=== PATIENT | female | born 1955 | race Caucasian/White ===

== ENCOUNTER 2020-06-09 08:53 | Outpatient (CLI) | payer MEDICAID, SELFPAY ==
[2020-06-09] MEDS: IRON SUCROSE COMPLEX 300 MG in SODIUM CHLORIDE 0.9% IV 235 ML 125 MG IVPB (09:52)
== END 2020-06-09 08:54 | disposition home or self-care (01) ==
PROVIDERS: PCP Family Medicine; Visit Provider Internal Medicine Hematology & Oncology
DX: D50.9 Iron deficiency anemia, unspecified (principal)
CPT/HCPCS: 96365; 96366; J1756; J7050

== ENCOUNTER 2020-06-16 09:09 | Outpatient (CLI) | payer MEDICAID, SELFPAY ==
[2020-06-16 09:40] VITALS: BP 128/65; PULSE 67; RESP 16; TEMP 36.7; O2SAT 95
[2020-06-16] MEDS: IRON SUCROSE COMPLEX 300 MG in SODIUM CHLORIDE 0.9% IV 250 ML 125 MG IVPB (09:40)
--- NOTE | 2020-06-16 11:45 | PC.NURSE ---
Patient tolerated IV infusion well. IV site removed,tip intact. Dressing applied to site. Patient and discussed with Diamond Cutter and this RN that they did not feel the need for an administrative appeals tribunal member. Patient states they belive they can communicate well enough with white board, they dont want the administrative appeals tribunal member to have to sit in the hallway for 2hours. Nurse manager credit collections notified. Patient left ambulatory accompanied by . Denies any questions at discharge.
== END 2020-06-16 09:10 | disposition home or self-care (01) ==
LOC: CHSTREATRM 09:11
PROVIDERS: PCP Family Medicine; Visit Provider Internal Medicine Hematology & Oncology
DX: D50.9 Iron deficiency anemia, unspecified (principal)
CPT/HCPCS: 96365; 96366; J1756; J7050

== ENCOUNTER 2020-06-23 08:45 | Outpatient (CLI) | payer MEDICAID, SELFPAY ==
[2020-06-23] MEDS: IRON SUCROSE COMPLEX 300 MG in SODIUM CHLORIDE 0.9% IV 250 ML 125 MG IVPB (09:32)
== END 2020-06-23 08:46 | disposition home or self-care (01) ==
PROVIDERS: PCP Family Medicine; Visit Provider Internal Medicine Hematology & Oncology
DX: D50.9 Iron deficiency anemia, unspecified (principal)
CPT/HCPCS: 96365; 96366; J1756; J7050

== ENCOUNTER 2020-06-30 08:46 | Outpatient (CLI) | payer MEDICAID, SELFPAY ==
[2020-06-30] MEDS: IRON SUCROSE COMPLEX 300 MG in SODIUM CHLORIDE 0.9% IV 235 ML 125 MG IVPB (09:17)
--- NOTE | 2020-06-30 09:18 | PC.NURSE ---
Infusion started, given water to drink, denies needs
--- NOTE | 2020-06-30 10:16 | PC.NURSE ---
Tolerating infusion well, site clear
== END 2020-06-30 08:47 | disposition home or self-care (01) ==
PROVIDERS: PCP Family Medicine; Visit Provider Internal Medicine Hematology & Oncology
DX: D50.9 Iron deficiency anemia, unspecified (principal)
CPT/HCPCS: 96365; 96366; J1756; J7050

== ENCOUNTER 2020-07-07 08:44 | Outpatient (CLI) | payer MEDICAID, SELFPAY ==
[2020-07-07] MEDS: IRON SUCROSE COMPLEX 300 MG in SODIUM CHLORIDE 0.9% IV 235 ML 125 MG IVPB (09:27)
== END 2020-07-07 08:45 | disposition home or self-care (01) ==
LOC: CHSTREATRM 08:47
PROVIDERS: PCP Family Medicine; Visit Provider Internal Medicine Hematology & Oncology
DX: D50.9 Iron deficiency anemia, unspecified (principal)
CPT/HCPCS: 96365; 96366; J1756; J7050

== ENCOUNTER 2020-07-14 08:53 | Outpatient (CLI) | payer MEDICAID, SELFPAY ==
[2020-07-14 09:14] VITALS: BP 128/77; PULSE 64; RESP 12; TEMP 36.6; O2SAT 100
[2020-07-14] MEDS: IRON SUCROSE COMPLEX 300 MG in SODIUM CHLORIDE 0.9% IV 250 ML 125 MG IVPB (09:19)
--- NOTE | 2020-07-14 11:28 | PC.NURSE ---
Tolerated #6 of 6 Venofer infusions without difficulty. No concerns voiced. Safe exit of hospital.
== END 2020-07-14 08:54 | disposition home or self-care (01) ==
PROVIDERS: PCP Family Medicine; Visit Provider Internal Medicine Hematology & Oncology
DX: D50.9 Iron deficiency anemia, unspecified (principal)
CPT/HCPCS: 96365; 96366; J1756; J7050

== ENCOUNTER 2020-08-04 09:56 | Outpatient (CLI) | payer MEDICAID, SELFPAY ==
[2020-08-04 10:18] LABS: Basophils Absolute Auto 0.04 K/mm3 (0.00-0.10); Basophils Percent Auto 0.6 % (0.0-1.0); Eosinophils Absolute Auto 0.25 K/mm3 (0.02-0.50); Hematocrit 33.3 % (35.0-49.0); Hemoglobin 9.9 g/dL (12.0-15.0); Immature Granulocyte Absolute 0.02 K/mm3 (0.00-0.00); Immature Granulocyte Percent A 0.3 % (0.0-0.0); Lymphocytes Absolute Auto 0.96 K/mm3 (1.10-4.50); Lymphocytes Percent Auto 15.4 % (18.0-42.0); Mean Corpuscular HGB Conc 29.7 g/dL (32.0-36.0); Mean Corpuscular Hemoglobin 28.4 pg (27.0-31.0); Mean Corpuscular Volume 95.4 fL (78.0-102.0); Mean Platelet Volume 9.1 fl (9.2-11.8); Monocytes Absolute Auto 0.62 K/mm3 (0.10-0.90); Monocytes Percent Auto 9.9 % (2.0-11.0); Neutrophils Absolute Auto 4.4 K/mm3 (1.7-7.2); Neutrophils Percent Auto 69.8 % (50.0-70.0); Platelet Count Result 336 K/mm3 (150-420); Red Blood Count 3.49 M/mm3 (4.20-5.40); Red Cell Distribution Width 15.9 % (11.6-14.4); White Blood Count 6.3 K/mm3 (4.8-10.8)
[2020-08-04 10:50] LABS: Alanine Aminotransferase 18 U/L (14-59); Albumin Level 3.7 g/dL (3.4-5.0); Alkaline Phosphatase 86 U/L (46-116); Anion Gap 8 mmol/L (8-16); Aspartate Amino Transferase 13 U/L (15-37); Bilirubin,Total 0.7 mg/dL (0.00-1.00); Blood Urea Nitrogen 11 mg/dL (7-18); Calcium 8.6 mg/dL (8.5-10.1); Carbon Dioxide 31 mmol/L (21-32); Chloride 101 mmol/L (98-108); Estimated Glomerular Filt Rate > 60; Ferritin 79 ng/mL (8-252); Glucose 270 mg/dL (70-99); Iron 84 ug/dL (50-170); Osmolality Calculated 299 mOsm/kg (285-295); Percent Iron Saturation 23 % (12-57); Potassium 3.4 mmol/L (3.5-5.1); Sodium 140 mmol/L (136-145); Total Protein 7.1 g/dL (6.4-8.2)
[2020-08-10 21:21] LABS: Chromogranin A 130 ng/mL (25-140)
== END 2020-08-04 09:57 | disposition home or self-care (01) ==
LOC: CHSLAB 09:58
PROVIDERS: PCP Family Medicine; Visit Provider Internal Medicine Hematology & Oncology
DX: D3A.8 Other benign neuroendocrine tumors (principal); D50.9 Iron deficiency anemia, unspecified
CPT/HCPCS: 36415; 80053; 82728; 83540; 83550; 85025; 86316

== ENCOUNTER 2020-09-22 09:02 | Outpatient (CLI) | payer MEDICAID, SELFPAY ==
[2020-09-22 09:02] VITALS: BP 122/68; PULSE 68; RESP 16; TEMP 36.6; O2SAT 97
[2020-09-22] MEDS: IRON SUCROSE COMPLEX 300 MG in SODIUM CHLORIDE 0.9% IV 250 ML 125 MG IVPB (09:38)
--- NOTE | 2020-09-22 11:44 | PC.NURSE ---
Patient here for #1 of 5 Venofer IV infusion. Patient just had this in June. No new teaching needed per patient. Patient is deaf and communication done by dry erase board. IV Venofer administered. Patient tolerated well. Safe exit of hospital. Will return Sep 29, 2020 at 0900 for #2.
== END 2020-09-22 09:03 | disposition home or self-care (01) ==
LOC: CHSTREATRM 09:09
PROVIDERS: PCP Family Medicine; Visit Provider Internal Medicine Hematology & Oncology
DX: D50.9 Iron deficiency anemia, unspecified (principal)
CPT/HCPCS: 96365; 96366; J1756; J7050

== ENCOUNTER 2020-09-29 09:09 | Outpatient (CLI) | payer MEDICAID, SELFPAY ==
[2020-09-29] MEDS: IRON SUCROSE COMPLEX 300 MG in SODIUM CHLORIDE 0.9% IV 235 ML 125 MG IVPB (09:57)
--- NOTE | 2020-09-29 11:02 | PC.NURSE ---
tolerating infusion well, napping, at the bedside
--- NOTE | 2020-09-29 12:05 | PC.NURSE ---
discharged to home, saline lock removed with cathlon intact, aware of s/s of what to watch for infection with removal
== END 2020-09-29 09:10 | disposition home or self-care (01) ==
LOC: CHSTREATRM 09:10
PROVIDERS: PCP Family Medicine; Visit Provider Internal Medicine Hematology & Oncology
DX: D50.9 Iron deficiency anemia, unspecified (principal)
CPT/HCPCS: 96365; 96366; J1756; J7050

== ENCOUNTER 2020-10-06 08:52 | Outpatient (CLI) | payer MEDICAID, SELFPAY ==
[2020-10-06 09:07] VITALS: BP 121/70; PULSE 64; RESP 14; TEMP 36.6; O2SAT 98
[2020-10-06] MEDS: IRON SUCROSE COMPLEX 300 MG in SODIUM CHLORIDE 0.9% IV 250 ML 125 MG IV PUSH (09:11)
--- NOTE | 2020-10-06 11:17 | PC.NURSE ---
Patient here for #3 weekly of 5 Venofer infusions. No concerns from patient. Venofer infusion administered. Tolerated well. Will be back Friday @ 0900 for #4. Safe exit of hospital.
== END 2020-10-06 08:53 | disposition home or self-care (01) ==
PROVIDERS: PCP Family Medicine; Visit Provider Internal Medicine Hematology & Oncology
DX: D50.9 Iron deficiency anemia, unspecified (principal)
CPT/HCPCS: 96365; 96366; J1756; J7050

== ENCOUNTER 2020-10-13 09:00 | Outpatient (CLI) | payer MEDICAID, SELFPAY ==
--- NOTE | 2020-10-13 09:10 | PC.NURSE ---
Here for outpatient infusion
[2020-10-13] MEDS: IRON SUCROSE COMPLEX 300 MG in SODIUM CHLORIDE 0.9% IV 235 ML 125 MG IVPB (09:30)
== END 2020-10-13 09:01 | disposition home or self-care (01) ==
LOC: CHSTREATRM 09:03
PROVIDERS: PCP Family Medicine; Visit Provider Internal Medicine Hematology & Oncology
DX: D50.9 Iron deficiency anemia, unspecified (principal)
CPT/HCPCS: 96365; 96366; J1756; J7050

== ENCOUNTER 2020-10-20 08:44 | Outpatient (CLI) | payer MEDICAID, SELFPAY ==
[2020-10-20] MEDS: IRON SUCROSE COMPLEX 300 MG in SODIUM CHLORIDE 0.9% IV 250 ML 166.67 MG IVPB (09:19)
[2020-10-20 10:24] VITALS: BP 118/70; PULSE 80; RESP 14; TEMP 36.3; O2SAT 96
--- NOTE | 2020-10-20 11:31 | PC.NURSE ---
Patient tolerated #5 of 5 Venofer IV infusion well this a.m. No noted concerns. Safe exit of hospital.
== END 2020-10-20 08:45 | disposition home or self-care (01) ==
PROVIDERS: PCP Family Medicine; Visit Provider Internal Medicine Hematology & Oncology
DX: D50.9 Iron deficiency anemia, unspecified (principal)
CPT/HCPCS: 96365; 96366; J1756; J7050

== ENCOUNTER 2020-11-10 13:15 | Outpatient (CLI) | payer MEDICAID, SELFPAY ==
[2020-11-10 13:26] LABS: Basophils Absolute Auto 0.04 K/mm3 (0.00-0.10); Basophils Percent Auto 0.5 % (0.0-1.0); Eosinophils Absolute Auto 0.17 K/mm3 (0.02-0.50); Eosinophils Percent Auto 2.2 % (1.0-6.0); Hematocrit 37.2 % (35.0-49.0); Hemoglobin 11.5 g/dL (12.0-15.0); Immature Granulocyte Absolute 0.02 K/mm3 (0.00-0.00); Immature Granulocyte Percent A 0.3 % (0.0-0.0); Lymphocytes Absolute Auto 1.31 K/mm3 (1.10-4.50); Lymphocytes Percent Auto 17.2 % (18.0-42.0); Mean Corpuscular HGB Conc 30.9 g/dL (32.0-36.0); Mean Corpuscular Hemoglobin 29.3 pg (27.0-31.0); Mean Corpuscular Volume 94.9 fL (78.0-102.0); Mean Platelet Volume 9.3 fl (9.2-11.8); Monocytes Absolute Auto 0.56 K/mm3 (0.10-0.90); Monocytes Percent Auto 7.3 % (2.0-11.0); Neutrophils Absolute Auto 5.5 K/mm3 (1.7-7.2); Neutrophils Percent Auto 72.5 % (50.0-70.0); Platelet Count Result 329 K/mm3 (150-420); Red Blood Count 3.92 M/mm3 (4.20-5.40); Red Cell Distribution Width 15.5 % (11.6-14.4); White Blood Count 7.6 K/mm3 (4.8-10.8)
[2020-11-10 14:30] LABS: Ferritin 120 ng/mL (8-252); Iron 40 ug/dL (50-170); Percent Iron Saturation 11 % (12-57)
== END 2020-11-10 13:16 | disposition home or self-care (01) ==
LOC: CHSLAB 13:18
PROVIDERS: PCP Family Medicine; Visit Provider Internal Medicine Hematology & Oncology
DX: D50.9 Iron deficiency anemia, unspecified (principal)
CPT/HCPCS: 36415; 82728; 83540; 83550; 85025

== ENCOUNTER 2020-12-26 14:27 | Outpatient (CLI) | payer MEDICAID, SELFPAY ==
[2020-12-26 14:39] LABS: Basophils Absolute Auto 0.05 K/mm3 (0.00-0.10); Basophils Percent Auto 0.8 % (0.0-1.0); Eosinophils Percent Auto 3.2 % (1.0-6.0); Hematocrit 40.4 % (35.0-49.0); Hemoglobin 12.4 g/dL (12.0-15.0); Immature Granulocyte Absolute 0.02 K/mm3 (0.00-0.00); Immature Granulocyte Percent A 0.3 % (0.0-0.0); Lymphocytes Absolute Auto 1.28 K/mm3 (1.10-4.50); Lymphocytes Percent Auto 20.3 % (18.0-42.0); Mean Corpuscular HGB Conc 30.7 g/dL (32.0-36.0); Mean Corpuscular Hemoglobin 28.8 pg (27.0-31.0); Mean Platelet Volume 9.5 fl (9.2-11.8); Monocytes Absolute Auto 0.68 K/mm3 (0.10-0.90); Monocytes Percent Auto 10.8 % (2.0-11.0); Neutrophils Absolute Auto 4.1 K/mm3 (1.7-7.2); Neutrophils Percent Auto 64.6 % (50.0-70.0); Platelet Count Result 321 K/mm3 (150-420); Red Cell Distribution Width 14.6 % (11.6-14.4); White Blood Count 6.3 K/mm3 (4.8-10.8)
[2020-12-26 15:49] LABS: Alanine Aminotransferase 14 U/L (14-59); Albumin Level 3.7 g/dL (3.4-5.0); Alkaline Phosphatase 74 U/L (46-116); Anion Gap 6 mmol/L (8-16); Aspartate Amino Transferase 13 U/L (15-37); Bilirubin,Total 0.8 mg/dL (0.00-1.00); Blood Urea Nitrogen 8 mg/dL (7-18); Calcium 8.8 mg/dL (8.5-10.1); Carbon Dioxide 36 mmol/L (21-32); Chloride 100 mmol/L (98-108); Estimated Glomerular Filt Rate > 60; Ferritin 47 ng/mL (8-252); Glucose 214 mg/dL (70-99); Iron 39 ug/dL (50-170); Osmolality Calculated 298 mOsm/kg (285-295); Percent Iron Saturation 10 % (12-57); Potassium 4.2 mmol/L (3.5-5.1); Sodium 142 mmol/L (136-145)
[2020-12-30 16:42] LABS: Chromogranin A 127 ng/mL (25-140)
== END 2020-12-26 14:28 | disposition home or self-care (01) ==
LOC: CHSLAB 14:29
PROVIDERS: PCP Family Medicine; Visit Provider Internal Medicine Hematology & Oncology
DX: D3A.8 Other benign neuroendocrine tumors (principal); D50.9 Iron deficiency anemia, unspecified
CPT/HCPCS: 36415; 80053; 82728; 83540; 83550; 85025; 86316

== ENCOUNTER 2021-01-05 09:03 | Outpatient (CLI) | payer MEDICAID, SELFPAY ==
[2021-01-05] MEDS: IRON SUCROSE COMPLEX 300 MG in SODIUM CHLORIDE 0.9% IV 235 ML 125 MG IVPB (09:38)
--- NOTE | 2021-01-05 11:40 | PC.NURSE ---
saline access dc'd, tolerated infusion well, discharged to home ambulatory
== END 2021-01-05 09:04 | disposition home or self-care (01) ==
PROVIDERS: PCP Family Medicine; Visit Provider Internal Medicine Hematology & Oncology
DX: E61.1 Iron deficiency (principal)
CPT/HCPCS: 96365; 96366; J1756; J7050

== ENCOUNTER 2021-01-12 08:49 | Outpatient (CLI) | payer MEDICAID, SELFPAY ==
--- NOTE | 2021-01-12 09:07 | PC.NURSE ---
Pt to room 229 amb per self. Up in chair. Communication between nurse and patient is written due to patient being deaf. Pt has no questions or concerns. Oriented to room. Call baez in reach. Reminded to call with needs.
[2021-01-12] MEDS: IRON SUCROSE COMPLEX 300 MG in SODIUM CHLORIDE 0.9% IV 250 ML 125 MG IVPB (09:18)
--- NOTE | 2021-01-12 11:25 | PC.NURSE ---
Venofer infused as ordered. Pt tolerated well. Discharged to home per self without complaints.
== END 2021-01-12 08:50 | disposition home or self-care (01) ==
LOC: CHSTREATRM 08:51
PROVIDERS: PCP Family Medicine; Visit Provider Internal Medicine Hematology & Oncology
DX: E61.1 Iron deficiency (principal)
CPT/HCPCS: 96365; 96366; J1756; J7050

== ENCOUNTER 2021-01-19 08:26 | Outpatient (CLI) | payer MEDICAID, SELFPAY ==
--- NOTE | 2021-01-19 08:40 | PC.NURSE ---
Here for outpatient infusion
[2021-01-19] MEDS: IRON SUCROSE COMPLEX 300 MG in SODIUM CHLORIDE 0.9% IV 235 ML 125 MG IVPB (09:01)
--- NOTE | 2021-01-19 11:05 | PC.NURSE ---
infusion complete, iv discontinued, site clear, ambulatory to home
== END 2021-01-19 08:27 | disposition home or self-care (01) ==
LOC: CHSTREATRM 08:30
PROVIDERS: PCP Family Medicine; Visit Provider Internal Medicine Hematology & Oncology
DX: D50.9 Iron deficiency anemia, unspecified (principal)
CPT/HCPCS: 96365; 96366; J1756; J7050

== ENCOUNTER 2021-01-23 14:36 | Outpatient (CLI) | payer MEDICAID, SELFPAY ==
[2021-01-23 14:51] LABS: Basophils Absolute Auto 0.04 K/mm3 (0.00-0.10); Basophils Percent Auto 0.7 % (0.0-1.0); Eosinophils Absolute Auto 0.18 K/mm3 (0.02-0.50); Eosinophils Percent Auto 3.1 % (1.0-6.0); Hemoglobin 12.1 g/dL (12.0-15.0); Immature Granulocyte Absolute 0.02 K/mm3 (0.00-0.00); Immature Granulocyte Percent A 0.3 % (0.0-0.0); Lymphocytes Absolute Auto 0.98 K/mm3 (1.10-4.50); Lymphocytes Percent Auto 16.8 % (18.0-42.0); Mean Corpuscular Hemoglobin 28.3 pg (27.0-31.0); Mean Corpuscular Volume 91.3 fL (78.0-102.0); Mean Platelet Volume 9.1 fl (9.2-11.8); Monocytes Absolute Auto 0.61 K/mm3 (0.10-0.90); Monocytes Percent Auto 10.5 % (2.0-11.0); Neutrophils Percent Auto 68.6 % (50.0-70.0); Platelet Count Result 255 K/mm3 (150-420); Red Blood Count 4.27 M/mm3 (4.20-5.40); Red Cell Distribution Width 15.3 % (11.6-14.4); White Blood Count 5.8 K/mm3 (4.8-10.8)
[2021-01-23 15:30] LABS: Alanine Aminotransferase 21 U/L (14-59); Albumin Level 3.7 g/dL (3.4-5.0); Alkaline Phosphatase 77 U/L (46-116); Anion Gap 7 mmol/L (8-16); Aspartate Amino Transferase 16 U/L (15-37); Bilirubin,Total 0.9 mg/dL (0.00-1.00); Blood Urea Nitrogen 8 mg/dL (7-18); Calcium 8.8 mg/dL (8.5-10.1); Carbon Dioxide 31 mmol/L (21-32); Chloride 101 mmol/L (98-108); Estimated Glomerular Filt Rate > 60; Glucose 245 mg/dL (70-99); Iron 63 ug/dL (50-170); Osmolality Calculated 294 mOsm/kg (285-295); Potassium 3.7 mmol/L (3.5-5.1); Sodium 139 mmol/L (136-145); Total Protein 6.7 g/dL (6.4-8.2)
[2021-01-23 17:15] LABS: Ferritin 198 ng/mL (8-252); Percent Iron Saturation 19 % (12-57)
[2021-01-27 17:27] LABS: Chromogranin A 95 ng/mL (25-140)
== END 2021-01-23 14:37 | disposition home or self-care (01) ==
LOC: CHSLAB 14:38
PROVIDERS: PCP Family Medicine; Visit Provider Internal Medicine Hematology & Oncology
DX: D12.6 Benign neoplasm of colon, unspecified (principal); D50.9 Iron deficiency anemia, unspecified
CPT/HCPCS: 36415; 80053; 82728; 83540; 83550; 85025; 86316

== ENCOUNTER 2021-03-28 12:20 | Outpatient (CLI) | payer MEDICAID, SELFPAY ==
[2021-03-28 12:34] LABS: Basophils Absolute Auto 0.04 K/mm3 (0.00-0.10); Basophils Percent Auto 0.7 % (0.0-1.0); Hematocrit 39.5 % (35.0-49.0); Hemoglobin 12.1 g/dL (12.0-15.0); Immature Granulocyte Absolute 0.02 K/mm3 (0.00-0.00); Immature Granulocyte Percent A 0.3 % (0.0-0.0); Lymphocytes Absolute Auto 1.66 K/mm3 (1.10-4.50); Lymphocytes Percent Auto 27.7 % (18.0-42.0); Mean Corpuscular HGB Conc 30.6 g/dL (32.0-36.0); Mean Corpuscular Hemoglobin 28.6 pg (27.0-31.0); Mean Corpuscular Volume 93.4 fL (78.0-102.0); Mean Platelet Volume 9.3 fl (9.2-11.8); Monocytes Absolute Auto 0.66 K/mm3 (0.10-0.90); Neutrophils Absolute Auto 3.3 K/mm3 (1.7-7.2); Neutrophils Percent Auto 55.3 % (50.0-70.0); Platelet Count Result 285 K/mm3 (150-420); Red Blood Count 4.23 M/mm3 (4.20-5.40); Red Cell Distribution Width 14.7 % (11.6-14.4)
[2021-03-28 13:42] LABS: Alanine Aminotransferase 18 U/L (14-59); Albumin Level 3.4 g/dL (3.4-5.0); Alkaline Phosphatase 75 U/L (46-116); Anion Gap 6 mmol/L (8-16); Aspartate Amino Transferase 14 U/L (15-37); Bilirubin,Total 1.2 mg/dL (0.00-1.00); Blood Urea Nitrogen 9 mg/dL (7-18); Calcium 8.7 mg/dL (8.5-10.1); Carbon Dioxide 38 mmol/L (21-32); Chloride 100 mmol/L (98-108); Estimated Glomerular Filt Rate > 60; Ferritin 80 ng/mL (8-252); Glucose 148 mg/dL (70-99); Iron 43 ug/dL (50-170); Osmolality Calculated 299 mOsm/kg (285-295); Percent Iron Saturation 14 % (12-57); Potassium 3.2 mmol/L (3.5-5.1); Sodium 144 mmol/L (136-145); Total Protein 6.3 g/dL (6.4-8.2)
== END 2021-03-28 12:21 | disposition home or self-care (01) ==
LOC: CHSLAB 12:25
PROVIDERS: PCP Family Medicine; Visit Provider Internal Medicine Hematology & Oncology
DX: D3A.8 Other benign neuroendocrine tumors (principal)
CPT/HCPCS: 36415; 80053; 82728; 83540; 83550; 85025; 86316

== ENCOUNTER 2021-04-20 09:04 | Outpatient (CLI) | payer MEDICAID, SELFPAY ==
[2021-04-20] MEDS: IRON SUCROSE COMPLEX 300 MG in SODIUM CHLORIDE 0.9% IV 250 ML 125 MG IVPB (09:40)
[2021-04-20 09:59] VITALS: BP 120/68; PULSE 80; RESP 14; O2SAT 97
--- NOTE | 2021-04-20 11:39 | PC.NURSE ---
Patient tolerated #1 of 3 IV Venofer Infusion well. No concerns voiced. Safe exit of hospital. Will return Next Fri. April.
== END 2021-04-20 09:05 | disposition home or self-care (01) ==
PROVIDERS: PCP Family Medicine; Visit Provider Internal Medicine Hematology & Oncology
DX: D50.9 Iron deficiency anemia, unspecified (principal)
CPT/HCPCS: 96365; 96366; J1756; J7050

== ENCOUNTER 2021-04-27 08:50 | Outpatient (CLI) | payer MEDICAID, SELFPAY ==
[2021-04-27 09:13] VITALS: BP 99/49; PULSE 65; RESP 14; TEMP 36.6; O2SAT 90
[2021-04-27] MEDS: IRON SUCROSE COMPLEX 300 MG in SODIUM CHLORIDE 0.9% IV 235 ML 125 MG IVPB (09:13)
--- NOTE | 2021-04-27 11:19 | PC.NURSE ---
Patient here for #2 of 3 Venofer infusion. Patient tolerated infusion well. Safely ambulated out of the building. Will return on 05/04/2021 at 0900.
== END 2021-04-27 08:51 | disposition home or self-care (01) ==
PROVIDERS: PCP Family Medicine; Visit Provider Internal Medicine Hematology & Oncology
DX: D50.9 Iron deficiency anemia, unspecified (principal)
CPT/HCPCS: 96365; 96366; J1756; J7050

== ENCOUNTER 2021-05-04 09:04 | Outpatient (CLI) | payer MEDICAID, SELFPAY ==
[2021-05-04 09:16] VITALS: BP 100/58; PULSE 60; RESP 14; TEMP 36.5; O2SAT 99
[2021-05-04] MEDS: IRON SUCROSE COMPLEX 300 MG in SODIUM CHLORIDE 0.9% IV 250 ML 125 MG IVPB (09:40)
--- NOTE | 2021-05-04 12:48 | PC.NURSE ---
Tolerated # 3 of 3 IV Venofer infusions well. NO concerns voiced. Patient glad this is the last one. Safe exit of hospital.
== END 2021-05-04 09:05 | disposition home or self-care (01) ==
LOC: CHSTREATRM 09:07
PROVIDERS: PCP Family Medicine; Visit Provider Internal Medicine Hematology & Oncology
DX: D50.9 Iron deficiency anemia, unspecified (principal)
CPT/HCPCS: 96365; 96366; J1756; J7050

== ENCOUNTER 2021-07-10 13:29 | Outpatient (CLI) | payer MEDICAID, SELFPAY ==
[2021-07-10 14:56] LABS: Ferritin 31 ng/mL (8-252); Iron 95 ug/dL (50-170); Percent Iron Saturation 25 % (12-57)
== END 2021-07-10 13:30 | disposition home or self-care (01) ==
LOC: CHSLAB 13:33
PROVIDERS: PCP Family Medicine; Visit Provider Internal Medicine Hematology & Oncology
DX: D50.9 Iron deficiency anemia, unspecified (principal)
CPT/HCPCS: 36415; 82728; 83540; 83550

== ENCOUNTER 2021-07-12 13:14 | Outpatient (CLI) | payer MEDICAID, SELFPAY ==
[2021-07-12 13:28] LABS: Basophils Absolute Auto 0.05 K/mm3 (0.00-0.10); Basophils Percent Auto 0.7 % (0.0-1.0); Eosinophils Absolute Auto 0.19 K/mm3 (0.02-0.50); Eosinophils Percent Auto 2.6 % (1.0-6.0); Hematocrit 34.6 % (35.0-49.0); Hemoglobin 10.4 g/dL (12.0-15.0); Immature Granulocyte Absolute 0.03 K/mm3 (0.00-0.00); Immature Granulocyte Percent A 0.4 % (0.0-0.0); Lymphocytes Absolute Auto 1.49 K/mm3 (1.10-4.50); Lymphocytes Percent Auto 20.3 % (18.0-42.0); Mean Corpuscular HGB Conc 30.1 g/dL (32.0-36.0); Mean Corpuscular Hemoglobin 29.1 pg (27.0-31.0); Mean Corpuscular Volume 96.9 fL (78.0-102.0); Mean Platelet Volume 9.2 fl (9.2-11.8); Monocytes Absolute Auto 0.71 K/mm3 (0.10-0.90); Monocytes Percent Auto 9.7 % (2.0-11.0); Neutrophils Absolute Auto 4.9 K/mm3 (1.7-7.2); Neutrophils Percent Auto 66.3 % (50.0-70.0); Platelet Count Result 323 K/mm3 (150-420); Red Blood Count 3.57 M/mm3 (4.20-5.40); Red Cell Distribution Width 15.7 % (11.6-14.4); White Blood Count 7.3 K/mm3 (4.8-10.8)
[2021-07-12 14:16] LABS: Alanine Aminotransferase 16 U/L (14-59); Albumin Level 3.7 g/dL (3.4-5.0); Alkaline Phosphatase 63 U/L (46-116); Anion Gap 13 mmol/L (8-16); Aspartate Amino Transferase 12 U/L (15-37); Bilirubin,Total 0.7 mg/dL (0.00-1.00); Blood Urea Nitrogen 11 mg/dL (7-18); Calcium 8.5 mg/dL (8.5-10.1); Carbon Dioxide 30 mmol/L (21-32); Chloride 103 mmol/L (98-108); Estimated Glomerular Filt Rate > 60; Glucose 153 mg/dL (70-99); Osmolality Calculated 304 mOsm/kg (285-295); Potassium 4.1 mmol/L (3.5-5.1); Sodium 146 mmol/L (136-145); Total Protein 6.7 g/dL (6.4-8.2)
== END 2021-07-12 13:15 | disposition home or self-care (01) ==
LOC: CHSLAB 13:18
PROVIDERS: PCP Family Medicine; Visit Provider Internal Medicine Hematology & Oncology
DX: D3A.8 Other benign neuroendocrine tumors (principal)
CPT/HCPCS: 36415; 80053; 85025; 86316

== ENCOUNTER 2021-10-11 11:30 | Outpatient (CLI) | payer MEDICAID, SELFPAY ==
[2021-10-11 11:47] LABS: Basophils Absolute Auto 0.04 K/mm3 (0.00-0.10); Basophils Percent Auto 0.8 % (0.0-1.0); Eosinophils Absolute Auto 0.21 K/mm3 (0.02-0.50); Eosinophils Percent Auto 4.3 % (1.0-6.0); Hematocrit 29.3 % (35.0-42.0); Hemoglobin 8.4 g/dL (11.7-13.8); Immature Granulocyte Absolute 0.02 K/mm3 (0.00-0.00); Immature Granulocyte Percent A 0.4 % (0.0-0.0); Lymphocytes Absolute Auto 0.79 K/mm3 (1.10-4.50); Lymphocytes Percent Auto 16.3 % (18.0-42.0); Mean Corpuscular HGB Conc 28.7 g/dL (32.0-36.0); Mean Corpuscular Hemoglobin 27.9 pg (27.0-31.0); Mean Corpuscular Volume 97.3 fL (78.0-102.0); Mean Platelet Volume 9.7 fl (9.2-11.8); Monocytes Absolute Auto 0.48 K/mm3 (0.10-0.90); Monocytes Percent Auto 9.9 % (2.0-11.0); Neutrophils Absolute Auto 3.3 K/mm3 (1.7-7.2); Neutrophils Percent Auto 68.3 % (50.0-70.0); Platelet Count Result 330 K/mm3 (150-420); Red Blood Count 3.01 M/mm3 (4.20-5.40); Red Cell Distribution Width 15.2 % (11.6-14.4); White Blood Count 4.9 K/mm3 (4.8-10.8)
[2021-10-11 12:16] LABS: Alanine Aminotransferase 11 U/L (14-59); Albumin Level 3.2 g/dL (3.4-5.0); Alkaline Phosphatase 66 U/L (46-116); Anion Gap 7 mmol/L (8-16); Aspartate Amino Transferase 12 U/L (15-37); Bilirubin,Total 0.7 mg/dL (0.00-1.00); Blood Urea Nitrogen 9 mg/dL (7-18); Calcium 8.2 mg/dL (8.5-10.1); Carbon Dioxide 32 mmol/L (21-32); Chloride 104 mmol/L (98-108); Estimated Glomerular Filt Rate > 60; Glucose 179 mg/dL (70-99); Osmolality Calculated 298 mOsm/kg (285-295); Potassium 3.6 mmol/L (3.5-5.1); Sodium 143 mmol/L (136-145); Total Protein 5.9 g/dL (6.4-8.2)
== END 2021-10-11 11:31 | disposition home or self-care (01) ==
LOC: CHSLAB 11:32
PROVIDERS: PCP Family Medicine; Visit Provider Internal Medicine Hematology & Oncology
DX: D3A.8 Other benign neuroendocrine tumors (principal)
CPT/HCPCS: 36415; 80053; 85025; 86316

== ENCOUNTER 2022-01-02 10:46 | Outpatient (CLI) | payer MEDICARE, SELFPAY ==
[2022-01-02 11:09] LABS: Basophils Absolute Auto 0.06 K/mm3 (0.00-0.10); Eosinophils Absolute Auto 0.18 K/mm3 (0.02-0.50); Eosinophils Percent Auto 2.9 % (1.0-6.0); Hemoglobin 9.2 g/dL (11.7-13.8); Immature Granulocyte Absolute 0.03 K/mm3 (0.00-0.00); Immature Granulocyte Percent A 0.5 % (0.0-0.0); Lymphocytes Absolute Auto 0.82 K/mm3 (1.10-4.50); Lymphocytes Percent Auto 13.2 % (18.0-42.0); Mean Corpuscular HGB Conc 28.8 g/dL (32.0-36.0); Mean Corpuscular Hemoglobin 26.3 pg (27.0-31.0); Mean Corpuscular Volume 91.4 fL (78.0-102.0); Mean Platelet Volume 9.4 fl (9.2-11.8); Monocytes Absolute Auto 0.59 K/mm3 (0.10-0.90); Monocytes Percent Auto 9.5 % (2.0-11.0); Neutrophils Absolute Auto 4.5 K/mm3 (1.7-7.2); Neutrophils Percent Auto 72.9 % (50.0-70.0); Platelet Count Result 320 K/mm3 (150-420); Red Cell Distribution Width 14.4 % (11.6-14.4); White Blood Count 6.2 K/mm3 (4.8-10.8)
[2022-01-02 11:43] LABS: Alanine Aminotransferase 13 U/L (14-59); Albumin Level 3.3 g/dL (3.4-5.0); Alkaline Phosphatase 55 U/L (46-116); Anion Gap 10 mmol/L (8-16); Aspartate Amino Transferase 11 U/L (15-37); Bilirubin,Total 0.6 mg/dL (0.00-1.00); Blood Urea Nitrogen 11 mg/dL (7-18); Calcium 8.5 mg/dL (8.5-10.1); Carbon Dioxide 30 mmol/L (21-32); Chloride 100 mmol/L (98-108); Estimated Glomerular Filt Rate > 60; Ferritin 8 ng/mL (8-252); Glucose 215 mg/dL (70-99); Iron 395 ug/dL (50-170); Osmolality Calculated 295 mOsm/kg (285-295); Percent Iron Saturation 91 % (12-57); Potassium 4.1 mmol/L (3.5-5.1); Sodium 140 mmol/L (136-145); Total Protein 6.2 g/dL (6.4-8.2)
== END 2022-01-02 10:47 | disposition home or self-care (01) ==
LOC: CHSLAB 10:54
PROVIDERS: PCP Family Medicine; Visit Provider Internal Medicine Hematology & Oncology
DX: D12.6 Benign neoplasm of colon, unspecified (principal); D50.9 Iron deficiency anemia, unspecified
CPT/HCPCS: 36415; 80053; 82728; 83540; 83550; 85025; 86316

== ENCOUNTER 2022-01-25 08:34 | Outpatient (CLI) | payer MEDICARE, MEDICAID, SELFPAY ==
[2022-01-25 08:50] VITALS: BP 121/63; PULSE 78; RESP 16; TEMP 36.6; O2SAT 97
[2022-01-25] MEDS: IRON SUCROSE COMPLEX 300 MG in SODIUM CHLORIDE 0.9% IV 250 ML 125 MG IVPB (09:00)
--- NOTE | 2022-01-25 10:55 | PC.NURSE ---
Patient here for IV Venofer infusion #1 of 4. Education on med given. No concerns voiced. Has had many times in past. IV Venofer administered see JAN. Tolerated well. Safe exit of hospital. Will return February 01, 2022 at 0900 for #2 of 4.
== END 2022-01-25 08:35 | disposition home or self-care (01) ==
LOC: CHSTREATRM 08:38
PROVIDERS: PCP Family Medicine; Visit Provider Internal Medicine Hematology & Oncology
DX: D50.9 Iron deficiency anemia, unspecified (principal)
CPT/HCPCS: 96365; 96366; J1756; J7050

== ENCOUNTER 2022-02-01 10:28 | Outpatient (CLI) | payer MEDICARE, MEDICAID, SELFPAY ==
[2022-02-01] MEDS: IRON SUCROSE COMPLEX 300 MG in SODIUM CHLORIDE 0.9% IV 235 ML 125 MG IVPB (11:00)
[2022-02-01 11:14] VITALS: BP 129/66; PULSE 72; RESP 14; TEMP 36.3; O2SAT 97
--- NOTE | 2022-02-01 12:56 | PC.NURSE ---
Patient here for IV Venofer #2 of 4. NO concerns voiced. IV Venofer administered. SEE MAR. Tolerated well. Will return next Friday02/08/22 for #3 of 4. Safe exit of hospital.
== END 2022-02-01 10:29 | disposition home or self-care (01) ==
LOC: CHSTREATRM 10:30
PROVIDERS: PCP Family Medicine; Visit Provider Internal Medicine Hematology & Oncology
DX: D50.9 Iron deficiency anemia, unspecified (principal)
CPT/HCPCS: 96365; 96366; J1756; J7050

== ENCOUNTER 2022-02-08 08:56 | Outpatient (CLI) | payer MEDICARE, MEDICAID, SELFPAY ==
[2022-02-08 09:11] VITALS: BP 132/74; PULSE 68; RESP 14; TEMP 36.1; O2SAT 97
[2022-02-08] MEDS: IRON SUCROSE COMPLEX 300 MG in SODIUM CHLORIDE 0.9% IV 250 ML 125 MG IVPB (09:26)
--- NOTE | 2022-02-08 11:31 | PC.NURSE ---
Patient here for #3 of 4 IV Venofer infusions. No concerns voiced. IV Venofer administered. See MAR. Tolerated well. Safe exit of hospital. Will return 02/15/22 for #4 at 0900
== END 2022-02-08 08:57 | disposition home or self-care (01) ==
PROVIDERS: PCP Family Medicine; Visit Provider Internal Medicine Hematology & Oncology
DX: D50.9 Iron deficiency anemia, unspecified (principal)
CPT/HCPCS: 96365; 96366; J1756; J7050

== ENCOUNTER 2022-02-15 08:41 | Outpatient (CLI) | payer MEDICARE, MEDICAID, SELFPAY ==
[2022-02-15 08:55] VITALS: BP 134/87; PULSE 72; RESP 14; TEMP 36.7; O2SAT 97
[2022-02-15] MEDS: IRON SUCROSE COMPLEX 300 MG in SODIUM CHLORIDE 0.9% IV 235 ML 125 MG IVPB (09:00)
--- NOTE | 2022-02-15 10:56 | PC.NURSE ---
Patient here for #4 of 4 IV Venofer infusions. No concerns voiced. IV Venofer administered. See MAR. Tolerated well. Safe exit of hospital. Will follow up with Dr. Sawant for more iron infusions in the future.
== END 2022-02-15 08:42 | disposition home or self-care (01) ==
LOC: CHSTREATRM 08:43
PROVIDERS: PCP Family Medicine; Visit Provider Internal Medicine Hematology & Oncology
DX: D50.9 Iron deficiency anemia, unspecified (principal)
CPT/HCPCS: 96365; 96366; J1756; J7050

== ENCOUNTER 2022-03-14 10:22 | Outpatient (CLI) | payer MEDICARE, SELFPAY ==
[2022-03-14 10:37] LABS: Basophils Absolute Auto 0.04 K/mm3 (0.00-0.10); Basophils Percent Auto 0.8 % (0.0-1.0); Eosinophils Absolute Auto 0.21 K/mm3 (0.02-0.50); Eosinophils Percent Auto 4.5 % (1.0-6.0); Hemoglobin 8.1 g/dL (11.7-13.8); Immature Granulocyte Absolute 0.02 K/mm3 (0.00-0.00); Immature Granulocyte Percent A 0.4 % (0.0-0.0); Lymphocytes Absolute Auto 0.95 K/mm3 (1.10-4.50); Lymphocytes Percent Auto 20.2 % (18.0-42.0); Mean Corpuscular HGB Conc 28.9 g/dL (32.0-36.0); Mean Corpuscular Hemoglobin 28.9 pg (27.0-31.0); Mean Platelet Volume 9.4 fl (9.2-11.8); Monocytes Absolute Auto 0.57 K/mm3 (0.10-0.90); Monocytes Percent Auto 12.1 % (2.0-11.0); Neutrophils Absolute Auto 2.9 K/mm3 (1.7-7.2); Platelet Count Result 331 K/mm3 (150-420); Red Cell Distribution Width 16.5 % (11.6-14.4); White Blood Count 4.7 K/mm3 (4.8-10.8)
[2022-03-14 11:45] LABS: Alanine Aminotransferase 17 U/L (14-59); Albumin Level 3.1 g/dL (3.4-5.0); Alkaline Phosphatase 61 U/L (46-116); Anion Gap 6 mmol/L (8-16); Aspartate Amino Transferase 13 U/L (15-37); Bilirubin,Total 0.5 mg/dL (0.00-1.00); Blood Urea Nitrogen 8 mg/dL (7-18); Calcium 8.2 mg/dL (8.5-10.1); Carbon Dioxide 32 mmol/L (21-32); Chloride 104 mmol/L (98-108); Estimated Glomerular Filt Rate > 60; Ferritin 38 ng/mL (8-252); Glucose 169 mg/dL (70-99); Iron 122 ug/dL (50-170); Osmolality Calculated 296 mOsm/kg (285-295); Percent Iron Saturation 36 % (12-57); Potassium 3.9 mmol/L (3.5-5.1); Sodium 142 mmol/L (136-145); Total Protein 5.8 g/dL (6.4-8.2)
== END 2022-03-14 10:23 | disposition home or self-care (01) ==
LOC: CHSLAB 10:24
PROVIDERS: PCP Family Medicine; Visit Provider Internal Medicine Hematology & Oncology
DX: D3A.8 Other benign neuroendocrine tumors (principal); D50.9 Iron deficiency anemia, unspecified
CPT/HCPCS: 36415; 80053; 82728; 83540; 83550; 85025; 86316

== ENCOUNTER 2022-05-04 08:51 | Outpatient (RCR) | payer MEDICARE, MEDICAID, SELFPAY ==
[2022-05-03 09:11] LABS: Basophils Absolute Auto 0.04 K/mm3 (0.00-0.10); Basophils Percent Auto 0.7 % (0.0-1.0); Eosinophils Absolute Auto 0.22 K/mm3 (0.02-0.50); Eosinophils Percent Auto 3.8 % (1.0-6.0); Hematocrit 25.4 % (35.0-42.0); Immature Granulocyte Absolute 0.02 K/mm3 (0.00-0.00); Immature Granulocyte Percent A 0.3 % (0.0-0.0); Lymphocytes Absolute Auto 1.35 K/mm3 (1.10-4.50); Lymphocytes Percent Auto 23.1 % (18.0-42.0); Mean Corpuscular HGB Conc 27.6 g/dL (32.0-36.0); Mean Corpuscular Volume 94.4 fL (78.0-102.0); Mean Platelet Volume 10.3 fl (9.2-11.8); Monocytes Absolute Auto 0.79 K/mm3 (0.10-0.90); Monocytes Percent Auto 13.5 % (2.0-11.0); Neutrophils Absolute Auto 3.4 K/mm3 (1.7-7.2); Neutrophils Percent Auto 58.6 % (50.0-70.0); Platelet Count Result 377 K/mm3 (150-420); Red Blood Count 2.69 M/mm3 (4.20-5.40); White Blood Count 5.8 K/mm3 (4.8-10.8)
[2022-05-04] MEDS: ACETAMINOPHEN 325 MG TABLET 650 MG PO (09:39)
[2022-05-04] MEDS: diphenhydrAMINE HCl CAP 25 MG CAPSULE PO (09:39)
[2022-05-04] MEDS: SODIUM CHLORIDE 0.9% IV 250 ML 10 ML IVPB (09:40)
[2022-05-04 10:08] VITALS: BP 138/54; PULSE 54; RESP 18; TEMP 36.2; O2SAT 94
[2022-05-04 10:30] VITALS: BP 150/72; PULSE 54; RESP 18; TEMP 36.1; O2SAT 94
[2022-05-04 11:30] VITALS: BP 140/55; PULSE 72; RESP 18; TEMP 36.1; O2SAT 94
[2022-05-04 12:30] VITALS: BP 146/70; PULSE 72; RESP 18; TEMP 36.1; O2SAT 95
[2022-05-04 12:56] LABS: Hematocrit 28.8 % (35.0-42.0); Hemoglobin 8.2 g/dL (11.7-13.8)
[2022-05-07 14:44] LABS: Ferritin 43 ng/mL (8-252); Iron 20 ug/dL (50-170)
== END 2022-08-01 23:59 | disposition home or self-care (01) ==
LOC: CHSTREATRM 08:51
PROVIDERS: PCP Family Medicine; Visit Provider Internal Medicine Hematology & Oncology
DX: D50.9 Iron deficiency anemia, unspecified (principal)
CPT/HCPCS: 36415; 36430; 82728; 83540; 85014; 85018; 85025; 86850; 86900; 86901; 86920; 96366; A9270; P9016

== ENCOUNTER 2022-06-07 09:08 | Outpatient (CLI) | payer MEDICARE, MEDICAID, SELFPAY ==
[2022-06-07] MEDS: IRON SUCROSE COMPLEX 300 MG in SODIUM CHLORIDE 0.9% IV 250 ML 125 MG IVPB (09:20)
[2022-06-07 09:28] VITALS: BP 129/66; PULSE 72; RESP 14; TEMP 36.4; O2SAT 96
--- NOTE | 2022-06-07 11:16 | PC.NURSE ---
Patient here for #1 of 2 for IV Venofer infusion. Education given. No concerns. IV Venofer administered. SEE MAR. Tolerated well. Safe exit of hospital. Will return Friday06/14/22 at 0900 for #2 of 2.
== END 2022-06-07 09:09 | disposition home or self-care (01) ==
LOC: CHSTREATRM 09:11
PROVIDERS: PCP Family Medicine; Visit Provider Internal Medicine Hematology & Oncology
DX: D50.9 Iron deficiency anemia, unspecified (principal)
CPT/HCPCS: 96365; 96366; J1756; J7050

== ENCOUNTER 2022-06-14 08:21 | Outpatient (CLI) | payer MEDICARE, MEDICAID, SELFPAY ==
[2022-06-14] MEDS: IRON SUCROSE COMPLEX 300 MG in SODIUM CHLORIDE 0.9% IV 250 ML 125 MG IVPB (08:35)
[2022-06-14 08:50] VITALS: BP 130/66; PULSE 60; RESP 14; TEMP 36.3; O2SAT 97
--- NOTE | 2022-06-14 10:39 | PC.NURSE ---
Patient tolerated IV Venofer infusion well. SEE MAR. NO concerns voiced. Safe exit of hospital.
== END 2022-06-14 08:22 | disposition home or self-care (01) ==
LOC: CHSTREATRM 08:24
PROVIDERS: PCP Family Medicine; Visit Provider Internal Medicine Hematology & Oncology
DX: D50.9 Iron deficiency anemia, unspecified (principal)
CPT/HCPCS: 96365; 96366; J1756; J7050

== ENCOUNTER 2022-06-29 09:11 | Outpatient (CLI) | payer MEDICARE, MEDICAID, SELFPAY ==
[2022-06-29] VITALS (9 sets, daily range): BP systolic 112–134; BP diastolic 56–68; PULSE 70–84; RESP 16–26; TEMP 36.1–36.6; O2SAT 94–95
[2022-06-29 09:32] LABS: Basophils Absolute Auto 0.05 K/mm3 (0.00-0.10); Basophils Percent Auto 1.1 % (0.0-1.0); Eosinophils Absolute Auto 0.24 K/mm3 (0.02-0.50); Immature Granulocyte Absolute 0.01 K/mm3 (0.00-0.00); Immature Granulocyte Percent A 0.2 % (0.0-0.0); Lymphocytes Absolute Auto 1.16 K/mm3 (1.10-4.50); Lymphocytes Percent Auto 24.4 % (18.0-42.0); Mean Corpuscular HGB Conc 27.5 g/dL (32.0-36.0); Mean Corpuscular Hemoglobin 22.8 pg (27.0-31.0); Mean Platelet Volume 9.8 fl (9.2-11.8); Monocytes Absolute Auto 0.68 K/mm3 (0.10-0.90); Monocytes Percent Auto 14.3 % (2.0-11.0); Neutrophils Absolute Auto 2.6 K/mm3 (1.7-7.2); Platelet Count Result 303 K/mm3 (150-420); Red Blood Count 2.89 M/mm3 (4.20-5.40); Red Cell Distribution Width 20.9 % (11.6-14.4); White Blood Count 4.8 K/mm3 (4.8-10.8)
[2022-06-29 10:05] LABS: Hemoglobin 6.6 g/dL (11.7-13.8)
[2022-06-29] MEDS: diphenhydrAMINE HCl CAP 25 MG CAPSULE PO (10:07)
[2022-06-29] MEDS: ACETAMINOPHEN 325 MG TABLET 650 MG PO (10:08)
[2022-06-29 10:26] LABS: Alanine Aminotransferase 12 U/L (14-59); Albumin Level 3.2 g/dL (3.4-5.0); Alkaline Phosphatase 56 U/L (46-116); Anion Gap 5 mmol/L (8-16); Aspartate Amino Transferase 10 U/L (15-37); Blood Urea Nitrogen 11 mg/dL (7-18); Calcium 8.3 mg/dL (8.5-10.1); Carbon Dioxide 35 mmol/L (21-32); Chloride 106 mmol/L (98-108); Estimated Glomerular Filt Rate > 60; Ferritin 21 ng/mL (8-252); Glucose 161 mg/dL (70-99); Iron 12 ug/dL (50-170); Osmolality Calculated 304 mOsm/kg (285-295); Potassium 3.3 mmol/L (3.5-5.1); Sodium 146 mmol/L (136-145); Total Protein 5.9 g/dL (6.4-8.2)
[2022-06-29] MEDS: SODIUM CHLORIDE 0.9% IV 250 ML 10 ML IVPB (11:05)
[2022-06-29 15:44] LABS: Hematocrit 26.8 % (35.0-42.0); Hemoglobin 7.7 g/dL (11.7-13.8)
[2022-06-29 18:58] LABS: Hematocrit 31.7 % (35.0-42.0); Hemoglobin 9.1 g/dL (11.7-13.8)
[2022-07-02 11:58] LABS: Percent Iron Saturation 3 % (12-57)
== END 2022-06-29 09:12 | disposition home or self-care (01) ==
LOC: CHSTREATRM 09:15
PROVIDERS: PCP Family Medicine; Visit Provider Internal Medicine Hematology & Oncology
DX: D3A.8 Other benign neuroendocrine tumors (principal)
CPT/HCPCS: 36415; 36430; 80053; 82728; 83540; 83550; 85014; 85018; 85025; 86316; 86850; 86900; 86901; 86920; A9270; J7050; P9016

== ENCOUNTER 2022-07-17 16:29 | Outpatient (CLI) | payer MEDICARE, SELFPAY ==
[2022-07-17 16:49] LABS: Basophils Absolute Auto 0.04 K/mm3 (0.00-0.10); Basophils Percent Auto 0.5 % (0.0-1.0); Eosinophils Absolute Auto 0.14 K/mm3 (0.02-0.50); Eosinophils Percent Auto 1.7 % (1.0-6.0); Hematocrit 25.4 % (35.0-42.0); Hemoglobin 7.1 g/dL (11.7-13.8); Immature Granulocyte Absolute 0.04 K/mm3 (0.00-0.00); Immature Granulocyte Percent A 0.5 % (0.0-0.0); Lymphocytes Absolute Auto 1.03 K/mm3 (1.10-4.50); Lymphocytes Percent Auto 12.7 % (18.0-42.0); Mean Corpuscular Hemoglobin 21.8 pg (27.0-31.0); Mean Corpuscular Volume 78.2 fL (78.0-102.0); Mean Platelet Volume 9.9 fl (9.2-11.8); Monocytes Absolute Auto 0.76 K/mm3 (0.10-0.90); Monocytes Percent Auto 9.4 % (2.0-11.0); Neutrophils Absolute Auto 6.1 K/mm3 (1.7-7.2); Neutrophils Percent Auto 75.2 % (50.0-70.0); Platelet Count Result 439 K/mm3 (150-420); Red Blood Count 3.25 M/mm3 (4.20-5.40); Red Cell Distribution Width 19.2 % (11.6-14.4); White Blood Count 8.1 K/mm3 (4.8-10.8)
[2022-07-17 18:12] LABS: Alanine Aminotransferase 11 U/L (14-59); Albumin Level 3.3 g/dL (3.4-5.0); Alkaline Phosphatase 60 U/L (46-116); Anion Gap 4 mmol/L (8-16); Aspartate Amino Transferase < 10 U/L (15-37); Bilirubin,Total 1.1 mg/dL (0.00-1.00); Blood Urea Nitrogen 7 mg/dL (7-18); Calcium 8.3 mg/dL (8.5-10.1); Carbon Dioxide 36 mmol/L (21-32); Chloride 100 mmol/L (98-108); Estimated Glomerular Filt Rate > 60; Ferritin 7 ng/mL (8-252); Glucose 171 mg/dL (70-99); Iron 9 ug/dL (50-170); Osmolality Calculated 292 mOsm/kg (285-295); Percent Iron Saturation 2 % (12-57); Potassium 3.5 mmol/L (3.5-5.1); Sodium 140 mmol/L (136-145); Total Protein 6.2 g/dL (6.4-8.2)
== END 2022-07-17 16:30 | disposition home or self-care (01) ==
LOC: CHSLAB 16:33
PROVIDERS: PCP Family Medicine; Visit Provider Internal Medicine Hematology & Oncology
DX: D3A.8 Other benign neuroendocrine tumors (principal); D50.9 Iron deficiency anemia, unspecified
CPT/HCPCS: 36415; 80053; 82728; 83540; 83550; 85025; 86316

== ENCOUNTER 2022-07-25 09:39 | Outpatient (RCR) | payer MEDICARE, MEDICAID, SELFPAY ==
[2022-07-23 11:10] LABS: Basophils Absolute Auto 0.04 K/mm3 (0.00-0.10); Basophils Percent Auto 0.6 % (0.0-1.0); Eosinophils Absolute Auto 0.25 K/mm3 (0.02-0.50); Eosinophils Percent Auto 3.9 % (1.0-6.0); Hematocrit 21.1 % (35.0-42.0); Immature Granulocyte Absolute 0.03 K/mm3 (0.00-0.00); Immature Granulocyte Percent A 0.5 % (0.0-0.0); Lymphocytes Absolute Auto 0.87 K/mm3 (1.10-4.50); Lymphocytes Percent Auto 13.4 % (18.0-42.0); Mean Corpuscular Hemoglobin 21.3 pg (27.0-31.0); Mean Corpuscular Volume 78.7 fL (78.0-102.0); Mean Platelet Volume 9.8 fl (9.2-11.8); Monocytes Absolute Auto 0.86 K/mm3 (0.10-0.90); Monocytes Percent Auto 13.3 % (2.0-11.0); Neutrophils Absolute Auto 4.4 K/mm3 (1.7-7.2); Neutrophils Percent Auto 68.3 % (50.0-70.0); Platelet Count Result 375 K/mm3 (150-420); Red Blood Count 2.68 M/mm3 (4.20-5.40); Red Cell Distribution Width 19.6 % (11.6-14.4); White Blood Count 6.5 K/mm3 (4.8-10.8)
[2022-07-23 11:33] LABS: Hemoglobin 5.7 g/dL (11.7-13.8)
[2022-07-24] VITALS (9 sets, daily range): BP systolic 121–145; BP diastolic 44–56; PULSE 52–58; RESP 17–18; TEMP 36.1–36.4; O2SAT 94–96
[2022-07-24] MEDS: SODIUM CHLORIDE 0.9% IV 250 ML 10 ML IVPB (10:11)
[2022-07-24] MEDS: ACETAMINOPHEN 325 MG TABLET 650 MG PO (10:12)
[2022-07-24] MEDS: diphenhydrAMINE HCl CAP 25 MG CAPSULE PO (10:12)
[2022-07-24 14:03] LABS: Hematocrit 22.3 % (35.0-42.0)
[2022-07-24 14:53] LABS: Hemoglobin 6.4 g/dL (11.7-13.8)
[2022-07-24 17:49] LABS: Hematocrit 28.7 % (35.0-42.0); Hemoglobin 8.4 g/dL (11.7-13.8)
--- NOTE | 2022-07-24 18:23 | PC.NURSE ---
1800 hemoglobin up to 8.4. lab uncomfortable in releasing 3rd unit blood. patient understands and agrees to come back in morning for labwork.
[2022-07-25 09:57] LABS: Hematocrit 30.2 % (35.0-42.0)
== END 2022-10-21 23:59 | disposition home or self-care (01) ==
LOC: CHSTREATRM 09:39
PROVIDERS: PCP Family Medicine; Visit Provider Internal Medicine Hematology & Oncology
DX: D64.9 Anemia, unspecified (principal); D3A.8 Other benign neuroendocrine tumors
CPT/HCPCS: 36415; 36430; 85014; 85018; 85025; 86850; 86900; 86901; 86920; A9270; J7050; P9016

== ENCOUNTER 2022-08-14 11:17 | Outpatient (CLI) | payer MEDICARE, MEDICAID, SELFPAY ==
[2022-08-14] VITALS (10 sets, daily range): BP systolic 100–140; BP diastolic 46–82; PULSE 61–68; RESP 14–18; TEMP 36.2–36.9; O2SAT 93–95
[2022-08-14 11:54] LABS: Basophils Absolute Auto 0.05 K/mm3 (0.00-0.10); Basophils Percent Auto 0.6 % (0.0-1.0); Eosinophils Absolute Auto 0.23 K/mm3 (0.02-0.50); Hematocrit 21.8 % (35.0-42.0); Immature Granulocyte Absolute 0.04 K/mm3 (0.00-0.00); Immature Granulocyte Percent A 0.5 % (0.0-0.0); Lymphocytes Absolute Auto 0.71 K/mm3 (1.10-4.50); Lymphocytes Percent Auto 9.2 % (18.0-42.0); Mean Corpuscular HGB Conc 28.4 g/dL (32.0-36.0); Mean Corpuscular Hemoglobin 21.5 pg (27.0-31.0); Mean Corpuscular Volume 75.4 fL (78.0-102.0); Monocytes Absolute Auto 0.69 K/mm3 (0.10-0.90); Monocytes Percent Auto 8.9 % (2.0-11.0); Neutrophils Percent Auto 77.8 % (50.0-70.0); Platelet Count Result 285 K/mm3 (150-420); Red Blood Count 2.89 M/mm3 (4.20-5.40); Red Cell Distribution Width 19.6 % (11.6-14.4); White Blood Count 7.7 K/mm3 (4.8-10.8)
[2022-08-14 12:03] LABS: Hemoglobin 6.2 g/dL (11.7-13.8)
[2022-08-14] MEDS: diphenhydrAMINE HCl CAP 25 MG CAPSULE PO (15:18)
[2022-08-14] MEDS: ACETAMINOPHEN 325 MG TABLET 650 MG PO (15:18)
[2022-08-14] MEDS: SODIUM CHLORIDE 0.9% IV 250 ML 30 ML IVPB (15:21)
--- NOTE | 2022-08-14 15:28 | PC.NURSE ---
pt resting in chair, in chair next to her, waiting telephone interceptor operator from lab to pick up man blood
[2022-08-14 19:12] LABS: Hematocrit 23.5 % (35.0-42.0)
[2022-08-14 19:15] LABS: Hemoglobin 6.7 g/dL (11.7-13.8)
[2022-08-14 23:29] LABS: Hematocrit 26.6 % (35.0-42.0); Hemoglobin 7.9 g/dL (11.7-13.8)
--- NOTE | 2022-08-14 23:40 | PC.NURSE ---
NS finished and IV site removed. Pt discharged and left with .
== END 2022-08-14 11:18 | disposition home or self-care (01) ==
LOC: CHSLAB 11:39 → CHSTREATRM 14:46
PROVIDERS: PCP Family Medicine; Visit Provider Internal Medicine Hematology & Oncology
DX: D64.9 Anemia, unspecified (principal)
CPT/HCPCS: 36415; 36430; 85014; 85018; 85025; 86850; 86900; 86901; 86920; A9270; J7050; P9016

== ENCOUNTER 2022-08-24 12:55 | Outpatient (RCR) | payer MEDICARE, MEDICAID, SELFPAY ==
[2022-08-23 14:52] LABS: Basophils Absolute Auto 0.06 K/mm3 (0.00-0.10); Basophils Percent Auto 0.9 % (0.0-1.0); Eosinophils Absolute Auto 0.22 K/mm3 (0.02-0.50); Eosinophils Percent Auto 3.4 % (1.0-6.0); Hematocrit 24.9 % (35.0-42.0); Hemoglobin 7.1 g/dL (11.7-13.8); Immature Granulocyte Absolute 0.02 K/mm3 (0.00-0.00); Immature Granulocyte Percent A 0.3 % (0.0-0.0); Lymphocytes Absolute Auto 1.23 K/mm3 (1.10-4.50); Lymphocytes Percent Auto 18.9 % (18.0-42.0); Mean Corpuscular HGB Conc 28.5 g/dL (32.0-36.0); Mean Corpuscular Hemoglobin 22.1 pg (27.0-31.0); Mean Corpuscular Volume 77.6 fL (78.0-102.0); Mean Platelet Volume 10.1 fl (9.2-11.8); Monocytes Absolute Auto 0.82 K/mm3 (0.10-0.90); Monocytes Percent Auto 12.6 % (2.0-11.0); Neutrophils Absolute Auto 4.2 K/mm3 (1.7-7.2); Neutrophils Percent Auto 63.9 % (50.0-70.0); Platelet Count Result 306 K/mm3 (150-420); Red Blood Count 3.21 M/mm3 (4.20-5.40); Red Cell Distribution Width 21.6 % (11.6-14.4); White Blood Count 6.5 K/mm3 (4.8-10.8)
[2022-08-24] MEDS: diphenhydrAMINE HCl CAP 25 MG CAPSULE PO (13:22)
[2022-08-24] MEDS: SODIUM CHLORIDE 0.9% IV 250 ML 10 ML IVPB (13:23)
[2022-08-24] MEDS: ACETAMINOPHEN 325 MG TABLET 650 MG PO (13:23)
[2022-08-24 13:42] VITALS: BP 118/54; PULSE 57; RESP 14; TEMP 36.9; O2SAT 94
[2022-08-24 14:00] VITALS: BP 112/58; PULSE 58; RESP 20; TEMP 36.6; O2SAT 95
[2022-08-24 14:58] VITALS: BP 118/57; PULSE 56; RESP 18; TEMP 36.8; O2SAT 94
[2022-08-24 15:58] VITALS: BP 122/58; PULSE 58; RESP 18; TEMP 36.6; O2SAT 94
[2022-08-24 17:36] LABS: Hemoglobin 7.6 g/dL (11.7-13.8); Mean Corpuscular HGB Conc 29.2 g/dL (32.0-36.0); Mean Corpuscular Volume 78.5 fL (78.0-102.0); Platelet Count Result 283 K/mm3 (150-420); Red Blood Count 3.31 M/mm3 (4.20-5.40); Red Cell Distribution Width 21.1 % (11.6-14.4); White Blood Count 5.6 K/mm3 (4.8-10.8)
== END 2022-11-21 23:59 | disposition home or self-care (01) ==
LOC: CHSTREATRM 12:55
PROVIDERS: PCP Family Medicine; Visit Provider Internal Medicine Hematology & Oncology
DX: D64.9 Anemia, unspecified (principal)
CPT/HCPCS: 36415; 36430; 85025; 85027; 86850; 86900; 86901; 86920; 96365; 96367; A9270; J7050; P9016

== ENCOUNTER 2022-09-07 10:43 | Outpatient (RCR) | payer MEDICARE, MEDICAID, SELFPAY ==
[2022-09-06 13:36] LABS: Hematocrit 25.3 % (35.0-42.0); Hemoglobin 7.1 g/dL (11.7-13.8)
[2022-09-07] VITALS (8 sets, daily range): BP systolic 102–121; BP diastolic 48–74; PULSE 58–60; RESP 16–18; TEMP 36.3–36.8; O2SAT 96–97
[2022-09-07] MEDS: SODIUM CHLORIDE 0.9% IV 250 ML 10 ML IVPB (11:03)
[2022-09-07] MEDS: ACETAMINOPHEN 325 MG TABLET 650 MG PO (11:05)
[2022-09-07] MEDS: diphenhydrAMINE HCl CAP 25 MG CAPSULE PO (11:05)
[2022-09-07 13:53] LABS: Hematocrit 25.8 % (35.0-42.0); Hemoglobin 7.3 g/dL (11.7-13.8)
[2022-09-07 17:56] LABS: Hematocrit 28.9 % (35.0-42.0); Hemoglobin 8.3 g/dL (11.7-13.8)
== END 2022-12-05 23:59 | disposition home or self-care (01) ==
LOC: CHSTREATRM 10:43
PROVIDERS: PCP Family Medicine; Visit Provider Internal Medicine Hematology & Oncology
DX: D64.9 Anemia, unspecified (principal)
CPT/HCPCS: 36415; 36430; 85014; 85018; 86850; 86900; 86901; 86920; 96365; 96366; A9270; J7050; P9016

== ENCOUNTER 2022-10-25 11:26 | Outpatient (CLI) | payer MEDICARE, SELFPAY ==
[2022-10-25 11:41] LABS: Basophils Absolute Auto 0.05 K/mm3 (0.00-0.10); Basophils Percent Auto 0.7 % (0.0-1.0); Eosinophils Absolute Auto 0.42 K/mm3 (0.02-0.50); Eosinophils Percent Auto 5.8 % (1.0-6.0); Hematocrit 31.8 % (35.0-42.0); Hemoglobin 9.1 g/dL (11.7-13.8); Immature Granulocyte Absolute 0.03 K/mm3 (0.00-0.00); Immature Granulocyte Percent A 0.4 % (0.0-0.0); Lymphocytes Absolute Auto 1.01 K/mm3 (1.10-4.50); Mean Corpuscular HGB Conc 28.6 g/dL (32.0-36.0); Mean Corpuscular Hemoglobin 21.9 pg (27.0-31.0); Mean Corpuscular Volume 76.4 fL (78.0-102.0); Mean Platelet Volume 9.7 fl (9.2-11.8); Monocytes Absolute Auto 0.72 K/mm3 (0.10-0.90); Neutrophils Percent Auto 69.1 % (50.0-70.0); Platelet Count Result 431 K/mm3 (150-420); Red Blood Count 4.16 M/mm3 (4.20-5.40); Red Cell Distribution Width 21.2 % (11.6-14.4); White Blood Count 7.2 K/mm3 (4.8-10.8)
[2022-10-25 13:18] LABS: Alanine Aminotransferase 10 U/L (14-59); Albumin Level 3.2 g/dL (3.4-5.0); Alkaline Phosphatase 63 U/L (46-116); Anion Gap 9 mmol/L (8-16); Aspartate Amino Transferase 14 U/L (15-37); Bilirubin,Total 1.9 mg/dL (0.00-1.00); Blood Urea Nitrogen 11 mg/dL (7-18); Calcium 8.4 mg/dL (8.5-10.1); Carbon Dioxide 32 mmol/L (21-32); Chloride 104 mmol/L (98-108); Estimated Glomerular Filt Rate > 60; Ferritin 6 ng/mL (8-252); Glucose 199 mg/dL (70-99); Iron 14 ug/dL (50-170); Osmolality Calculated 305 mOsm/kg (285-295); Percent Iron Saturation 3 % (12-57); Potassium 3.4 mmol/L (3.5-5.1); Sodium 145 mmol/L (136-145); Total Protein 6.7 g/dL (6.4-8.2)
== END 2022-10-25 11:27 | disposition home or self-care (01) ==
LOC: CHSLAB 11:29
PROVIDERS: PCP Family Medicine; Visit Provider Internal Medicine Hematology & Oncology
DX: D3A.8 Other benign neuroendocrine tumors (principal); D50.9 Iron deficiency anemia, unspecified
CPT/HCPCS: 36415; 80053; 82728; 83540; 83550; 85025; 86316

== ENCOUNTER 2022-11-11 07:48 | Outpatient (CLI) | payer MEDICARE, MEDICAID, SELFPAY ==
--- NOTE | ~2022-11-11 | CT_ITS ---
Clinical Indication: Neuroendocrine tumor CT Scan of the Chest with Contrast: Technique: Contiguous sections were acquired throughout the chest after intravenous administration of 75 cc of Omnipaque 350. Dose reduction technique was used on this scan by utilizing automated exposu re control and iterative reconstruction technique. The dose-length product (DLP) was 176.82 mGy-cm. Findings: There is no evidence of any significant mediastinal, hilar or axillary lymphadenopathy. Small calcifi ed hilar lymph nodes are present. No large central pulmonary embolus identified. No aortic aneurysm. Extensive coronary artery calcifications are present. There is no evidence of pleural or pericardial effusion. There is a 1 cm right upper lobe pulmonary nodule was central coarse calcification (axial image 51). There is a lobulated right lower lobe pulmonary nodule measuring up to 2.7 x 2.0 cm, with extensive c oarse calcification. There is a 1.1 cm left lower lobe pulmonary nodule with central coarse calcifica tion in (axial image 86). Images through the upper abdomen reveal questionable partially imaged retroperitoneal/aortocaval lymp hadenopathy. 1.8 cm hepatic lesion with nodular peripheral enhancement has morphology most compatible with hemangioma. Impression: Multiple pulmonary nodules with coarse/extensive calcification, as detailed above. Findings could ref lect neuroendocrine tumors, or other treated neoplastic disease. Calcification pattern of the smaller lesions in particular suggests benign etiology. Questionable partially imaged retroperitoneal/aortocaval lymphadenopathy. Given history of known recu rrent tumor, consider dedicated abdominal pelvic CT to further evaluate. 1.8 cm hepatic lesion is most consistent with hemangioma. Reviewed, dictated and finalized at location [] [facility] Impression: Multiple pulmonary nodules with coarse/extensive calcification, as detailed abo ve. Findings could reflect neuroendocrine tumors, or other treated neoplastic d isease. Calcification pattern of the smaller lesions in particular suggests denis ign etiology. Questionable partially imaged retroperitoneal/aortocaval lymphadenopathy. Given history of known recurrent tumor, consider dedicated abdominal pelvic CT to fu rther evaluate. 1.8 cm hepatic lesion is most consistent with hemangioma.
== END 2022-11-11 07:49 | disposition home or self-care (01) ==
LOC: CHSIMG 07:50
PROVIDERS: PCP Internal Medicine; Visit Provider Internal Medicine Hematology & Oncology
DX: D3A.8 Other benign neuroendocrine tumors (principal); R91.8 Other nonspecific abnormal finding of lung field; R59.0 Localized enlarged lymph nodes; K76.9 Liver disease, unspecified
CPT/HCPCS: 71260; Q9967

== ENCOUNTER 2022-12-05 10:57 | Outpatient (CLI) | payer MEDICARE, SELFPAY ==
[2022-12-05 11:17] LABS: Basophils Absolute Auto 0.06 K/mm3 (0.00-0.10); Basophils Percent Auto 0.6 % (0.0-1.0); Eosinophils Absolute Auto 0.18 K/mm3 (0.02-0.50); Eosinophils Percent Auto 1.8 % (1.0-6.0); Hematocrit 20.5 % (35.0-42.0); Immature Granulocyte Absolute 0.14 K/mm3 (0.00-0.00); Immature Granulocyte Percent A 1.4 % (0.0-0.0); Lymphocytes Absolute Auto 1.16 K/mm3 (1.10-4.50); Lymphocytes Percent Auto 11.7 % (18.0-42.0); Mean Corpuscular HGB Conc 25.4 g/dL (32.0-36.0); Mean Corpuscular Hemoglobin 17.4 pg (27.0-31.0); Mean Corpuscular Volume 68.6 fL (78.0-102.0); Mean Platelet Volume 10.6 fl (9.2-11.8); Monocytes Absolute Auto 1.11 K/mm3 (0.10-0.90); Monocytes Percent Auto 11.2 % (2.0-11.0); Neutrophils Absolute Auto 7.3 K/mm3 (1.7-7.2); Neutrophils Percent Auto 73.3 % (50.0-70.0); Nucleated Red Blood Cells Absolute Auto 0.05 K/mm3 (0.00-0.00); Nucleated Red Blood Cells Perc 0.5 % (0-0.0); Platelet Count Result 367 K/mm3 (150-420); Red Blood Count 2.99 M/mm3 (4.20-5.40); Red Cell Distribution Width 20.1 % (11.6-14.4); White Blood Count 9.9 K/mm3 (4.8-10.8)
[2022-12-05 11:22] LABS: Hemoglobin 5.2 g/dL (11.7-13.8)
[2022-12-05 11:37] LABS: Iron 12 ug/dL (50-170); Percent Iron Saturation 3 % (12-57)
== END 2022-12-05 10:58 | disposition home or self-care (01) ==
LOC: CHSLAB 11:02
PROVIDERS: PCP Internal Medicine; Visit Provider Internal Medicine Hematology & Oncology
DX: D3A.8 Other benign neuroendocrine tumors (principal); D50.9 Iron deficiency anemia, unspecified
CPT/HCPCS: 99199; 36415; 83540; 83550; 85025; 86316

== ENCOUNTER 2022-12-05 12:45 | Emergency (ER) | payer MEDICARE, MEDICAID, SELFPAY ==
[2022-12-05] VITALS (71 sets, daily range): BP systolic 88–139; BP diastolic 38–81; PULSE 58–71; RESP 12–21; TEMP 36.4–37.1; O2SAT 87–100
--- NOTE | ~2022-12-05 | CT_ITS ---
EXAMINATION: CT abdomen pelvis w con DATE: 12/05/2022 15:01 INDICATION: Abdominal pain. Black tarry stools for one week TECHNIQUE: Computed tomography (CT) of the abdomen and pelvis was performed with 100 cc Omnipaque 350 intravenous contrast. Automated exposure control and iterative reconstruction technique were employe d. Exam dose: 676.37 mGy-cm total exam DLP. COMPARISON: 11/11/2022 CT thorax FINDINGS: There is mild bibasilar discoid atelectasis or scarring. There is a calcified granuloma in the left lower lobe. Normal heart size. No pericardial or pleural effusion. There are dependent numerous small gallstones. No gallbladder wall thickening or pericholecystic flu id collection. Approximately 1.8 cm right hepatic hemangioma is again noted. No hepatic, pancreatic, splenic, adrena l space occupying mass lesion is noted otherwise. No left renal space occupying mass lesion. 2 x 2.5 cm hypoattenuating lesion of the mid right kidney with attenuation of 36 Hounsfield units. 2 mm nonobstructing calculus of upper pole of right kidney. No ureteral calculus or hydroureteronep hrosis. There is extensive abdominal aortic calcification but no aneurysm. The uterus and adnexal areas are unremarkable. There is moderate diffuse bladder wall thickening; cy stitis is not excluded. There is postoperative change from right colon resection. There is right lower quadrant mesenteric fa t infiltration, thickening of the right anterior pararenal fascia, and multiple nonenlarged mesenteri c lymph nodes. There is an approximately 2.9 x 3.3 cm soft tissue mass at the base of the mesentery centered slightl y right of midline, with coarse amorphous calcifications, suggestion of surrounding retraction. Diffe rential diagnosis includes mesenteric soft tissue mass with calcification such as carcinoid tumor in particular. No bile duct or pancreatic duct dilatation. No bowel obstruction or intraperitoneal free air. No suspicious osteolytic or osteoblastic lesions. Moderately prominent anterior wedge compression fracture deformity of T12. Grade 1 anterolisthesis at L4-5 due to degenerative change at the apophyseal joints. IMPRESSION: 2.9 x 3.3 cm soft tissue mass with coarse calcifications of the base of the mesentery wi th some surrounding retraction, likely carcinoid. Nearby inflammatory change of the mesentery includi ng nonenlarged mesenteric lymph nodes, thickening of the right anterior pararenal fascia 2 x 2.5 cm indeterminate hypoattenuating lesion of the mid right kidney with attenuation of 36 Hounsf ield units; consider ultrasound or MRI examination for more definitive evaluation 2 mm nonobstructing right renal calculus Hemangioma of liver, right hepatic lobe Cholelithiasis Postoperative change of the right colon Moderately prominent T12 compression fracture Reviewed, dictated and finalized at [facility]. Reviewed, dictated and finalized at location A. EON MASTER IMPRESSION: 2.9 x 3.3 cm soft tissue mass with coarse calcifications of the ba se of the mesentery with some surrounding retraction, likely carcinoid. Nearby inflammatory change of the mesentery including nonenlarged mesenteric lymph nod es, thickening of the right anterior pararenal fascia 2 x 2.5 cm indeterminate hypoattenuating lesion of the mid right kidney with at tenuation of 36 Hounsfield units; consider ultrasound or MRI examination for mo re definitive evaluation 2 mm nonobstructing right renal calculus Hemangioma of liver, right hepatic lobe Cholelithiasis Postoperative change of the right colon Moderately prominent T12 compression fracture
[2022-12-05 13:54] LABS: Occult Blood Positive (Negative)
[2022-12-05 13:56] LABS: Basophils Absolute Auto 0.04 K/mm3 (0.00-0.10); Basophils Percent Auto 0.4 % (0.0-1.0); Eosinophils Absolute Auto 0.14 K/mm3 (0.02-0.50); Eosinophils Percent Auto 1.4 % (1.0-6.0); Immature Granulocyte Absolute 0.13 K/mm3 (0.00-0.00); Immature Granulocyte Percent A 1.3 % (0.0-0.0); Lymphocytes Absolute Auto 0.92 K/mm3 (1.10-4.50); Lymphocytes Percent Auto 8.9 % (18.0-42.0); Mean Corpuscular Hemoglobin 17.1 pg (27.0-31.0); Mean Corpuscular Volume 68.3 fL (78.0-102.0); Monocytes Absolute Auto 1.11 K/mm3 (0.10-0.90); Monocytes Percent Auto 10.7 % (2.0-11.0); Neutrophils Percent Auto 77.3 % (50.0-70.0); Nucleated Red Blood Cells Absolute Auto 0.05 K/mm3 (0.00-0.00); Nucleated Red Blood Cells Perc 0.5 % (0-0.0); Platelet Count Result 345 K/mm3 (150-420); Red Blood Count 2.87 M/mm3 (4.20-5.40); Red Cell Distribution Width 20.2 % (11.6-14.4); White Blood Count 10.3 K/mm3 (4.8-10.8)
[2022-12-05 14:00] LABS: Hematocrit 19.6 % (35.0-42.0); Hemoglobin 4.9 g/dL (11.7-13.8)
[2022-12-05] MEDS: PANTOPRAZOLE SODIUM IV 40 MG VIAL 80 MG IV PUSH (14:04)
[2022-12-05] MEDS: SODIUM CHLORIDE 0.9% IV 1,000 ML 999 ML IV CONT (14:05)
[2022-12-05] MEDS: KETOROLAC 30 MG/ML VIAL (*BKC) IV PUSH (14:06)
[2022-12-05 14:07] LABS: INR 1.5; Partial Thromboplastin Time 32.6 SEC (23.90-30.70); Prothrombin Time 15.8 Seconds (9.50-12.10)
[2022-12-05 14:09] LABS: Albumin Level 2.6 g/dL (3.4-5.0); Alkaline Phosphatase 58 U/L (46-116); Anion Gap 7 mmol/L (8-16); Aspartate Amino Transferase 12 U/L (15-37); Bilirubin,Total 1.8 mg/dL (0.00-1.00); Blood Urea Nitrogen 9 mg/dL (7-18); CRP 7.7 mg/dL (0.0-0.9); Calcium 7.4 mg/dL (8.5-10.1); Carbon Dioxide 34 mmol/L (21-32); Chloride 99 mmol/L (98-108); Estimated Glomerular Filt Rate > 60; Glucose 211 mg/dL (70-99); Lipase 28 U/L (16-77); Magnesium 1.2 mg/dL (1.8-2.4); Osmolality Calculated 294 mOsm/kg (285-295); Potassium 2.7 mmol/L (3.5-5.1); Sodium 140 mmol/L (136-145); Total Protein 6.4 g/dL (6.4-8.2)
[2022-12-05 14:12] LABS: Lactic Acid Reflex 3.2 mmol/L (0.4-2.0)
[2022-12-05 14:19] LABS: Alanine Aminotransferase 6 U/L (14-59)
--- NOTE | 2022-12-05 14:27 | ED.RECABL ---
HPI - Recheck/Abnormal Lab/Rx General Chief Complaint: Recheck/Abnormal Lab/Rx Stated Complaint: LOW BLOOD COUNT Time Seen by Provider: 12/05/22 12:46 Source: patient and family Mode of arrival: ambulatory Limitations: no limitations History of Present Illness HPI narrative: this is a 67-year-old female with history CAD with 4 stents currently on Xarelto and Plavix, with history of diabetes hypothyroidism. Patient presents after her primary care physician at ordered CBC which showed that her blood counts were hemoglobin of 5 with a hematocrit of 20, the patient has a history of deafness, and stated that she was having abdominal discomfort. Patient denied any chest pain or shortness of breath no fever chills no nausea or vomiting. There are no flank pain or dysuria no fever chills. Initial visit (ago): hour(s) Symptoms since prior visit: no new symptoms Related Data Home Medications Medication Instructions Recorded Confirmed atorvastatin 80 mg tablet 80 mg PO HS 09/22/20 12/05/22 ergocalciferol (vitamin D2) 1,250 1,250 mcg PO MONTHLY 09/22/20 12/05/22 mcg (50,000 unit) capsule escitalopram oxalate 20 mg tablet 20 mg PO DAILY 09/22/20 12/05/22 folic acid 1 mg tablet 1 mg PO DAILY 09/22/20 12/05/22 hydrocodone 10 mg-acetaminophen 1 tablet PO Q6H PRN Pain, Moderate 09/22/20 12/05/22 325 mg tablet lisinopril 2.5 mg tablet 2.5 mg PO DAILY 09/22/20 12/05/22 metformin 500 mg tablet,extended 500 mg PO BID 09/22/20 12/05/22 release 24 hr pantoprazole 20 mg tablet,delayed 20 mg PO QAM 09/22/20 12/05/22 release atenolol 25 mg tablet 25 mg PO DAILY 01/25/22 12/05/22 clopidogrel 75 mg tablet (Plavix) 75 mg PO DAILY 01/25/22 12/05/22 ferrous sulfate 325 mg (65 mg 325 mg PO DAILY 01/25/22 12/05/22 iron) tablet levothyroxine 125 mcg tablet 125 mcg PO DAILY 01/25/22 12/05/22 morphine 30 mg capsule,extended 30 mg PO Q24H 01/25/22 12/05/22 release 24 hr multiphase rivaroxaban 20 mg tablet (Xarelto) 20 mg PO DAILY 01/25/22 12/05/22 Allergies Allergy/AdvReac Type Severity Reaction Status Date / Time No Known Allergies Allergy Verified 12/05/22 13:17 Review of Systems Review of Systems: All systems reviewed & are unremarkable except as noted in HPI and below PMFSH Past Medical History Medical History CAD (coronary artery disease) Exam Const: General: healthy appearing Nutritional Appearance: well nourished Orientation/consciousness: patient oriented x3 Limitations: no limitations HENMT: Head: normal to inspection Face and sinus: normal facial exam Mouth: Yes Normal oral and palatal mucosa present Eyes: Conjunctivae: conjunctivae normal Pupils: Equal, round and reactive pupils present EOM: EOMs intact bilaterally Neck: Neck: normal visual inspection Chest: Chest palpation & inspection: normal inspection of the chest Resp: Effort & Inspection: normal respiratory effort Auscultation: clear to auscultation bilaterally Cardio: Rate: regular rate Rhythm: regular rhythm GI: GI Palp: Yes Soft to palpation : General: Yes bladder normal to palpation Urinary Catheter: Urinary Catheter: patent and draining Back/Spine/Pelvis: Back: no CVA tenderness Skin: General skin exam: normal color Rashes: no rashes Neuro: General: patient oriented x3 Cranial nerves: Yes Nystagmus not present Speech: normal speech Gait exam (Neuro): Normal gait present Extrem: General: normal to inspection and no clubbing, cyanosis or edema Psych: Mental Status: mental status grossly normal Affect: normal affect Course Course Emergency Course: labs reviewed with patient shows that her H&H has decreased and patient was typed and crossed and started transfusion, potassium was 2.7 and will start a K rider. Vital Signs Vital signs: Vital Signs Temperature 36.4 C L 12/05/22 13:20 Pulse Rate 66 12/05/22 13:20 Respiratory Rate 16 12/05/22 13:20 Blood Pres
--- NOTE | 2022-12-05 14:30 | PC.NURSE ---
ERP is aware patient only has 1 sukhwinder site due to not being able to use other arm and blood is currently infusing. hold Potassium IV until blood is infused.
--- NOTE | 2022-12-05 14:53 | PC.NURSE ---
While Rn was getting blood, patient was taken down to CT. Patient has had accident on stretcher and is getting cleaned up over in CT at this time.
[2022-12-05 16:51] LABS: Reflex Lactic Acid Yes or No Add Lactic
[2022-12-05] MEDS: POTASSIUM BICARBONATE 25 MEQ TABEF 50 MEQ PO (18:09)
[2022-12-05] MEDS: KCL 20 MEQ/SW 100 ML 100 ML 50 MEQ IVPB (18:11)
[2022-12-05 18:37] LABS: Hemoglobin 5.9 g/dL (11.7-13.8)
[2022-12-05 18:50] LABS: Lactic Acid 1.2 mmol/L (0.4-2.0)
[2022-12-05 20:35] LABS: Hematocrit 25.9 % (35.0-42.0); Hemoglobin 7.2 g/dL (11.7-13.8)
[2022-12-05 20:57] LABS: NT Pro B Type Natriuretic Pept 789 pg/mL (0-125)
== END 2022-12-05 22:50 | disposition short-term general hospital (02) ==
PROVIDERS: Emergency Provider Emergency Medicine; PCP Internal Medicine
DX: K92.2 Gastrointestinal hemorrhage, unspecified (principal); I25.10 Atherosclerotic heart disease of native coronary artery without angina pectoris; E11.9 Type 2 diabetes mellitus without complications; E03.9 Hypothyroidism, unspecified; Z79.84 Long term (current) use of oral hypoglycemic drugs; Z95.5 Presence of coronary angioplasty implant and graft; Z79.01 Long term (current) use of anticoagulants; Z79.02 Long term (current) use of antithrombotics/antiplatelets
CPT/HCPCS: 36415; 36430; 74177; 80053; 83540; 83550; 83605; 83690; 83735; 83880; 85014; 85018; 85025; 85610; 85730; 86140; 86316; 86850; 86900; 86901; 86920; 96361; 96365; 96366; 96375; 99285; A9270; C9113; J1885; J3480; J7030; P9016; Q9967

== ENCOUNTER 2022-12-19 10:22 | Outpatient (RCR) | payer MEDICARE, MEDICAID, SELFPAY ==
[2022-12-19 11:11] LABS: Basophils Absolute Auto 0.08 K/mm3 (0.00-0.10); Basophils Percent Auto 1.1 % (0.0-1.0); Eosinophils Absolute Auto 0.25 K/mm3 (0.02-0.50); Eosinophils Percent Auto 3.5 % (1.0-6.0); Hematocrit 21.6 % (35.0-42.0); Immature Granulocyte Absolute 0.02 K/mm3 (0.00-0.00); Immature Granulocyte Percent A 0.3 % (0.0-0.0); Immature Platelet Fraction Pct 3.4 % (1.0-7.0); Immature Reticulocyte Fraction 13.2 % (2.0-16.52); Lymphocytes Absolute Auto 1.56 K/mm3 (1.10-4.50); Lymphocytes Percent Auto 21.7 % (18.0-42.0); Mean Corpuscular HGB Conc 28.2 g/dL (32.0-36.0); Mean Corpuscular Hemoglobin 21.3 pg (27.0-31.0); Mean Corpuscular Volume 75.5 fL (78.0-102.0); Mean Platelet Volume 10.9 fl (9.2-11.8); Monocytes Absolute Auto 0.72 K/mm3 (0.10-0.90); Neutrophils Absolute Auto 4.6 K/mm3 (1.7-7.2); Neutrophils Percent Auto 63.4 % (50.0-70.0); Platelet Count Result 578 K/mm3 (150-420); Red Blood Count 2.86 M/mm3 (4.20-5.40); Red Cell Distribution Width 23.9 % (11.6-14.4); Reticulocyte Hemoglobin Conten 17.6 pg (28.0-35.0); Reticulocyte Percent 3.59 % (0.50-1.50); White Blood Count 7.2 K/mm3 (4.8-10.8)
[2022-12-19 11:12] LABS: Hemoglobin 6.1 g/dL (11.7-13.8)
== END 2022-12-19 10:23 | disposition home or self-care (01) ==
LOC: CHSTREATRM 10:22
PROVIDERS: PCP Internal Medicine; Visit Provider Internal Medicine Hematology & Oncology
DX: D64.9 Anemia, unspecified (principal); D3A.8 Other benign neuroendocrine tumors; G89.3 Neoplasm related pain (acute) (chronic)
CPT/HCPCS: 36415; 85025; 85046; 85055; 86850; 86880; 86900; 86901; 86920; A9270; J7050

== ENCOUNTER 2022-12-25 09:13 | Outpatient (RCR) | payer MEDICARE, MEDICAID, SELFPAY ==
[2022-12-23] VITALS (9 sets, daily range): BP systolic 103–153; BP diastolic 41–57; PULSE 57–79; RESP 14–16; TEMP 36.3–36.5; O2SAT 93–97
--- NOTE | 2022-12-23 10:30 | PC.NURSE ---
Patient arrived on floor at 1020 to room 202. New H/H drawn by lab
[2022-12-23 10:38] LABS: Hemoglobin 5.3 g/dL (11.7-13.8)
[2022-12-23 10:39] LABS: Hematocrit 19.7 % (35.0-42.0)
[2022-12-23] MEDS: diphenhydrAMINE HCl CAP 25 MG CAPSULE PO (11:34)
[2022-12-23] MEDS: ACETAMINOPHEN 325 MG TABLET 650 MG PO (11:34)
[2022-12-23] MEDS: SODIUM CHLORIDE 0.9% IV 250 ML 10 ML IVPB (11:40)
--- NOTE | 2022-12-23 13:17 | PC.NURSE ---
No s/s of adverse reaction. Patient alert and oriented x3. denies discomfort. Tranfusion continues as ordered
--- NOTE | 2022-12-23 14:04 | PC.NURSE ---
Transfusion completed. No ASE noted. Lab notified for H/H
[2022-12-23 14:13] LABS: Hematocrit 21.6 % (35.0-42.0)
[2022-12-23 14:22] LABS: Hemoglobin 5.9 g/dL (11.7-13.8)
--- NOTE | 2022-12-23 15:32 | PC.NURSE ---
pt up to restroom, returned to chair, feet elevated, no needs at this time, iv infusing without evidence of reaction
[2022-12-23 18:10] LABS: Hematocrit 23.7 % (35.0-42.0)
[2022-12-25] MEDS: SODIUM CHLORIDE 0.9% IV 250 ML 10 ML IVPB (09:00)
[2022-12-25] MEDS: ACETAMINOPHEN 325 MG TABLET 650 MG PO (09:15)
[2022-12-25] MEDS: diphenhydrAMINE HCl CAP 25 MG CAPSULE 50 MG PO (09:15)
[2022-12-25 09:30] VITALS: BP 145/60; PULSE 60; RESP 18; TEMP 36; O2SAT 96
[2022-12-25 09:55] VITALS: BP 146/66; PULSE 64; RESP 16; TEMP 35.9; O2SAT 97
[2022-12-25 10:55] VITALS: BP 139/61; PULSE 64; RESP 14; TEMP 36; O2SAT 97
[2022-12-25 11:55] VITALS: BP 137/60; PULSE 60; RESP 14; TEMP 35.9; O2SAT 97
[2022-12-25 12:15] VITALS: BP 136/61; PULSE 60; RESP 18; TEMP 35.9; O2SAT 97
[2022-12-25 12:46] LABS: Hematocrit 28.6 % (35.0-42.0); Hemoglobin 8.5 g/dL (11.7-13.8)
--- NOTE | 2022-12-25 12:54 | PC.NURSE ---
Patient here for 1 Unit of PRBC's for Hgb 7.0. Education given. Permit signed. Patient had 2 units of PRBC's on Friday12/23/22. No concerns voiced. Reports is to see GI doctor on 01/01/23. 1 Unit of PRBC's administered see TAR. Tolerated well. Post H/H drawn 8.5/28.6. Safe exit of hospital escorted with sign other.
== END 2022-12-25 09:14 | disposition home or self-care (01) ==
LOC: CHSTREATRM 09:13
PROVIDERS: PCP Family Medicine; Visit Provider Internal Medicine Hematology & Oncology
DX: D64.9 Anemia, unspecified (principal)
CPT/HCPCS: 36415; 36430; 85014; 85018; 86850; 86900; 86901; 86920; A9270; J7050; P9016

== ENCOUNTER 2023-01-08 08:55 | Outpatient (RCR) | payer MEDICARE, MEDICAID, SELFPAY ==
[2023-01-07 13:18] LABS: Basophils Absolute Auto 0.06 K/mm3 (0.00-0.10); Basophils Percent Auto 0.9 % (0.0-1.0); Eosinophils Percent Auto 2.9 % (1.0-6.0); Hematocrit 24.3 % (35.0-42.0); Immature Granulocyte Absolute 0.03 K/mm3 (0.00-0.00); Immature Granulocyte Percent A 0.4 % (0.0-0.0); Lymphocytes Absolute Auto 1.15 K/mm3 (1.10-4.50); Lymphocytes Percent Auto 16.6 % (18.0-42.0); Mean Corpuscular HGB Conc 28.8 g/dL (32.0-36.0); Mean Corpuscular Hemoglobin 23.3 pg (27.0-31.0); Mean Corpuscular Volume 80.7 fL (78.0-102.0); Mean Platelet Volume 10.3 fl (9.2-11.8); Monocytes Absolute Auto 0.66 K/mm3 (0.10-0.90); Monocytes Percent Auto 9.6 % (2.0-11.0); Neutrophils Absolute Auto 4.8 K/mm3 (1.7-7.2); Neutrophils Percent Auto 69.6 % (50.0-70.0); Platelet Count Result 220 K/mm3 (150-420); Red Blood Count 3.01 M/mm3 (4.20-5.40); Red Cell Distribution Width 21.7 % (11.6-14.4); White Blood Count 6.9 K/mm3 (4.8-10.8)
[2023-01-07 13:55] LABS: Alanine Aminotransferase 15 U/L (14-59); Albumin Level 2.9 g/dL (3.4-5.0); Alkaline Phosphatase 57 U/L (46-116); Anion Gap 3 mmol/L (8-16); Aspartate Amino Transferase 14 U/L (15-37); Bilirubin,Total 1.3 mg/dL (0.00-1.00); Blood Urea Nitrogen 10 mg/dL (7-18); Calcium 7.9 mg/dL (8.5-10.1); Carbon Dioxide 33 mmol/L (21-32); Chloride 101 mmol/L (98-108); Estimated Glomerular Filt Rate > 60; Ferritin 3 ng/mL (8-252); Glucose 183 mg/dL (70-99); Iron 13 ug/dL (50-170); Lactate Dehydrogenase 142 U/L (81-234); Osmolality Calculated 288 mOsm/kg (285-295); Percent Iron Saturation 3 % (12-57); Potassium 3.9 mmol/L (3.5-5.1); Sodium 137 mmol/L (136-145); Total Protein 6.1 g/dL (6.4-8.2)
[2023-01-08] MEDS: diphenhydrAMINE HCl CAP 25 MG CAPSULE PO (09:05)
[2023-01-08] MEDS: ACETAMINOPHEN 325 MG TABLET 650 MG PO (09:05)
[2023-01-08] MEDS: SODIUM CHLORIDE 0.9% IV 250 ML 10 ML IVPB (09:05)
[2023-01-08 09:18] VITALS: BP 114/59; PULSE 72; RESP 14; TEMP 36; O2SAT 96
[2023-01-08 09:30] VITALS: BP 109/58; PULSE 68; RESP 14; TEMP 36.1; O2SAT 96
[2023-01-08 10:30] VITALS: BP 110/56; PULSE 78; RESP 14; TEMP 36.1; O2SAT 96
[2023-01-08 11:30] VITALS: BP 118/60; PULSE 68; RESP 14; TEMP 36.1; O2SAT 97
[2023-01-08 12:15] VITALS: BP 121/60; PULSE 78; RESP 14; TEMP 36.1; O2SAT 97
--- NOTE | 2023-01-08 12:25 | PC.NURSE ---
Patient here for 1 Unit of PRBC's for Hgb of 7.0. Education given. Pre meds given SEE MAR. 1 Unit of PRBC's administered. SEE TAR. Tolerated well. No s/sx of transfusion reaction note or reported. Lab denis post H/H see labs. Safe exit of hospital with significant other.
[2023-01-08 12:56] LABS: Hemoglobin 8.4 g/dL (11.7-13.8)
[2023-01-21] MEDS: SODIUM CHLORIDE 0.9% IV 250 ML 10 ML IVPB (10:00)
[2023-01-21] MEDS: ACETAMINOPHEN 325 MG TABLET 650 MG PO (10:01)
[2023-01-21] MEDS: diphenhydrAMINE HCl CAP 25 MG CAPSULE PO (10:01)
[2023-01-21 10:18] VITALS: BP 108/50; PULSE 64; RESP 18; TEMP 36.4; O2SAT 94
[2023-01-21 10:26] VITALS: BMI 20.8
== END 2023-01-08 08:56 | disposition home or self-care (01) ==
LOC: CHSTREATRM 08:55
PROVIDERS: PCP Internal Medicine; Visit Provider Internal Medicine Hematology & Oncology
DX: D64.9 Anemia, unspecified (principal); D3A.8 Other benign neuroendocrine tumors
CPT/HCPCS: 36415; 36430; 80053; 82728; 83540; 83550; 83615; 85014; 85018; 85025; 86316; 86850; 86900; 86901; 86920; A9270; J7050; P9016

== ENCOUNTER 2023-01-14 10:09 | Outpatient (CLI) | payer MEDICARE, MEDICAID, SELFPAY ==
[2023-01-14 10:24] VITALS: BP 143/59; PULSE 68; RESP 14; TEMP 36.1; O2SAT 97
--- NOTE | 2023-01-14 11:49 | PC.NURSE ---
01/14/23 1045 Patient here for monthy Sandostatin injection. Education given. No concerns voiced. This is #25 of 31. Injection administered. SEE MAR. Tolerated well. Safe exit of hospital with significant other. Will return 02/11/23 1000 for next month's injection.
== END 2023-01-14 10:10 | disposition home or self-care (01) ==
PROVIDERS: PCP Family Medicine; Visit Provider Internal Medicine Hematology & Oncology
DX: Z51.11 Encounter for antineoplastic chemotherapy (principal); D3A.8 Other benign neuroendocrine tumors; D50.9 Iron deficiency anemia, unspecified
CPT/HCPCS: 96402; J2353

== ENCOUNTER 2023-01-21 09:27 | Outpatient (RCR) | payer MEDICARE, MEDICAID, SELFPAY ==
[2023-01-20 13:04] LABS: Basophils Absolute Auto 0.05 K/mm3 (0.00-0.10); Basophils Percent Auto 0.9 % (0.0-1.0); Eosinophils Absolute Auto 0.18 K/mm3 (0.02-0.50); Eosinophils Percent Auto 3.1 % (1.0-6.0); Hematocrit 24.8 % (35.0-42.0); Immature Granulocyte Absolute 0.02 K/mm3 (0.00-0.00); Immature Granulocyte Percent A 0.3 % (0.0-0.0); Lymphocytes Absolute Auto 1.32 K/mm3 (1.10-4.50); Mean Corpuscular HGB Conc 28.2 g/dL (32.0-36.0); Mean Corpuscular Hemoglobin 22.1 pg (27.0-31.0); Mean Corpuscular Volume 78.2 fL (78.0-102.0); Mean Platelet Volume 9.6 fl (9.2-11.8); Monocytes Absolute Auto 0.64 K/mm3 (0.10-0.90); Monocytes Percent Auto 11.1 % (2.0-11.0); Neutrophils Absolute Auto 3.5 K/mm3 (1.7-7.2); Neutrophils Percent Auto 61.6 % (50.0-70.0); Platelet Count Result 380 K/mm3 (150-420); Red Blood Count 3.17 M/mm3 (4.20-5.40); Red Cell Distribution Width 20.2 % (11.6-14.4); White Blood Count 5.7 K/mm3 (4.8-10.8)
[2023-01-20 13:31] LABS: Alanine Aminotransferase 12 U/L (14-59); Albumin Level 2.8 g/dL (3.4-5.0); Alkaline Phosphatase 56 U/L (46-116); Anion Gap 5 mmol/L (8-16); Aspartate Amino Transferase 21 U/L (15-37); Bilirubin,Total 1.4 mg/dL (0.00-1.00); Blood Urea Nitrogen 7 mg/dL (7-18); Calcium 8.3 mg/dL (8.5-10.1); Carbon Dioxide 35 mmol/L (21-32); Chloride 105 mmol/L (98-108); Estimated Glomerular Filt Rate > 60; Glucose 159 mg/dL (70-99); Iron 7 ug/dL (50-170); Lactate Dehydrogenase 157 U/L (81-234); Osmolality Calculated 301 mOsm/kg (285-295); Percent Iron Saturation 2 % (12-57); Potassium 4.2 mmol/L (3.5-5.1); Sodium 145 mmol/L (136-145); Total Protein 6.1 g/dL (6.4-8.2)
[2023-01-21 14:49] LABS: Hematocrit 26.4 % (35.0-42.0)
== END 2023-01-21 09:28 | disposition home or self-care (01) ==
LOC: CHSTREATRM 09:27
PROVIDERS: PCP Family Medicine; Visit Provider Internal Medicine Hematology & Oncology
DX: D64.9 Anemia, unspecified (principal); D3A.8 Other benign neuroendocrine tumors
CPT/HCPCS: 36415; 36430; 80053; 83540; 83550; 83615; 85014; 85018; 85025; 86316; 86850; 86900; 86901; 86920; A9270; J7050; P9016

== ENCOUNTER 2023-01-29 15:45 | Outpatient (CLI) | payer MEDICARE, SELFPAY ==
[2023-01-29 16:09] LABS: Basophils Absolute Auto 0.06 K/mm3 (0.00-0.10); Basophils Percent Auto 1.1 % (0.0-1.0); Eosinophils Absolute Auto 0.21 K/mm3 (0.02-0.50); Eosinophils Percent Auto 3.8 % (1.0-6.0); Hematocrit 29.9 % (35.0-42.0); Hemoglobin 8.5 g/dL (11.7-13.8); Immature Granulocyte Absolute 0.01 K/mm3 (0.00-0.00); Immature Granulocyte Percent A 0.2 % (0.0-0.0); Lymphocytes Percent Auto 23.2 % (18.0-42.0); Mean Corpuscular HGB Conc 28.4 g/dL (32.0-36.0); Mean Corpuscular Hemoglobin 22.3 pg (27.0-31.0); Mean Corpuscular Volume 78.3 fL (78.0-102.0); Mean Platelet Volume 10.6 fl (9.2-11.8); Monocytes Absolute Auto 0.68 K/mm3 (0.10-0.90); Monocytes Percent Auto 12.1 % (2.0-11.0); Neutrophils Absolute Auto 3.3 K/mm3 (1.7-7.2); Neutrophils Percent Auto 59.6 % (50.0-70.0); Platelet Count Result 265 K/mm3 (150-420); Red Blood Count 3.82 M/mm3 (4.20-5.40); Red Cell Distribution Width 20.2 % (11.6-14.4); White Blood Count 5.6 K/mm3 (4.8-10.8)
== END 2023-01-29 15:46 | disposition home or self-care (01) ==
PROVIDERS: Visit Provider Internal Medicine Hematology & Oncology
DX: D64.9 Anemia, unspecified (principal); D3A.8 Other benign neuroendocrine tumors
CPT/HCPCS: 36415; 85025

== ENCOUNTER 2023-02-11 10:01 | Outpatient (CLI) | payer MEDICARE, MEDICAID, SELFPAY ==
[2023-02-11 10:13] VITALS: BP 143/40; PULSE 72; RESP 14; TEMP 36.6; O2SAT 97
--- NOTE | 2023-02-11 10:48 | PC.NURSE ---
Patient here for monthly Sandostatin injection. Education given. Reports no problems with last's month's. No concerns voiced. Injection administered. SEE MAR. Tolerated well. Will return on 03/11/23 at 1000 for next's month's. Safe exit of hospital with significant other.
== END 2023-02-11 10:02 | disposition home or self-care (01) ==
PROVIDERS: PCP Family Medicine; Visit Provider Internal Medicine Hematology & Oncology
DX: D3A.8 Other benign neuroendocrine tumors (principal)
CPT/HCPCS: 96372; 96402; J2353

== ENCOUNTER 2023-02-28 10:59 | Outpatient (RCR) | payer MEDICARE, SELFPAY ==
[2023-02-28 11:16] LABS: Basophils Absolute Auto 0.03 K/mm3 (0.00-0.10); Basophils Percent Auto 0.5 % (0.0-1.0); Eosinophils Absolute Auto 0.12 K/mm3 (0.02-0.50); Eosinophils Percent Auto 2.2 % (1.0-6.0); Hematocrit 26.2 % (35.0-42.0); Hemoglobin 7.4 g/dL (11.7-13.8); Immature Granulocyte Absolute 0.03 K/mm3 (0.00-0.00); Immature Granulocyte Percent A 0.5 % (0.0-0.0); Lymphocytes Absolute Auto 0.73 K/mm3 (1.10-4.50); Lymphocytes Percent Auto 13.2 % (18.0-42.0); Mean Corpuscular HGB Conc 28.2 g/dL (32.0-36.0); Mean Corpuscular Hemoglobin 22.2 pg (27.0-31.0); Mean Corpuscular Volume 78.7 fL (78.0-102.0); Mean Platelet Volume 9.8 fl (9.2-11.8); Monocytes Absolute Auto 0.32 K/mm3 (0.10-0.90); Monocytes Percent Auto 5.8 % (2.0-11.0); Neutrophils Absolute Auto 4.3 K/mm3 (1.7-7.2); Neutrophils Percent Auto 77.8 % (50.0-70.0); Platelet Count Result 310 K/mm3 (150-420); Red Blood Count 3.33 M/mm3 (4.20-5.40); White Blood Count 5.5 K/mm3 (4.8-10.8)
== END 2023-05-29 23:59 | disposition home or self-care (01) ==
LOC: CHSLAB 10:59
PROVIDERS: PCP Family Medicine; Visit Provider Internal Medicine Hematology & Oncology
DX: D3A.8 Other benign neuroendocrine tumors (principal)
CPT/HCPCS: 36415; 85025

== ENCOUNTER 2023-03-05 10:33 | Outpatient (CLI) | payer MEDICARE, MEDICAID, SELFPAY ==
[2023-03-05 10:59] LABS: Hematocrit 28.4 % (35.0-42.0); Hemoglobin 7.8 g/dL (11.7-13.8)
[2023-03-05 11:07] VITALS: BP 114/52; PULSE 56; RESP 16; TEMP 36.1; O2SAT 96
[2023-03-05] MEDS: ACETAMINOPHEN 325 MG TABLET 650 MG PO (11:10)
[2023-03-05] MEDS: SODIUM CHLORIDE 0.9% IV 250 ML 10 ML IVPB (11:14)
[2023-03-05] MEDS: diphenhydrAMINE HCl CAP 25 MG CAPSULE PO (11:14)
[2023-03-05 11:26] VITALS: BP 128/54; PULSE 58; RESP 18; TEMP 36.1; O2SAT 98
[2023-03-05 11:42] VITALS: BMI 29.3
[2023-03-05 12:26] VITALS: BP 118/54; PULSE 58; RESP 18; TEMP 36.2; O2SAT 96
[2023-03-05 13:26] VITALS: BP 140/84; PULSE 58; RESP 18; TEMP 36.1; O2SAT 97
--- NOTE | 2023-03-05 13:38 | PC.NURSE ---
1111 blood starts @ 100ml/hr. 1126 blood turned up to 125ml/hr. 1200 blood again turned up. tolerating well. blood cont to infuse at this time.
[2023-03-05 14:26] VITALS: BP 125/54; PULSE 58; RESP 18; TEMP 36.1; O2SAT 97
[2023-03-05 15:13] LABS: Hematocrit 28.2 % (35.0-42.0); Hemoglobin 8.1 g/dL (11.7-13.8)
--- NOTE | 2023-03-05 15:15 | PC.NURSE ---
1500 iv removed. drg applied. lab here to draw. left on her own accord with .
== END 2023-03-05 10:34 | disposition home or self-care (01) ==
LOC: CHSTREATRM 10:35
PROVIDERS: PCP Family Medicine; Visit Provider Internal Medicine Hematology & Oncology
DX: D50.9 Iron deficiency anemia, unspecified (principal)
CPT/HCPCS: 36415; 36430; 85014; 85018; 86850; 86900; 86901; 86920; A9270; J7050; P9016

== ENCOUNTER 2023-03-11 09:53 | Outpatient (CLI) | payer MEDICARE, MEDICAID, SELFPAY ==
--- NOTE | 2023-03-11 10:24 | PC.NURSE ---
Sandostatin given right hip IM, tolerated well, bandage applied, discharged home ambulatory, Laura to call with next appointment time
== END 2023-03-11 09:54 | disposition home or self-care (01) ==
LOC: CHSTREATRM 09:57
PROVIDERS: PCP Family Medicine; Visit Provider Internal Medicine Hematology & Oncology
DX: D3A.8 Other benign neuroendocrine tumors (principal)
CPT/HCPCS: 96372; J2353

== ENCOUNTER 2023-04-03 12:54 | Outpatient (CLI) | payer MEDICARE, SELFPAY ==
[2023-04-03 13:15] LABS: Basophils Absolute Auto 0.03 K/mm3 (0.00-0.10); Basophils Percent Auto 0.6 % (0.0-1.0); Eosinophils Absolute Auto 0.11 K/mm3 (0.02-0.50); Eosinophils Percent Auto 2.2 % (1.0-6.0); Hematocrit 25.1 % (35.0-42.0); Hemoglobin 7.1 g/dL (11.7-13.8); Immature Granulocyte Absolute 0.02 K/mm3 (0.00-0.00); Immature Granulocyte Percent A 0.4 % (0.0-0.0); Lymphocytes Absolute Auto 0.94 K/mm3 (1.10-4.50); Lymphocytes Percent Auto 18.5 % (18.0-42.0); Mean Corpuscular HGB Conc 28.3 g/dL (32.0-36.0); Mean Corpuscular Hemoglobin 22.3 pg (27.0-31.0); Mean Corpuscular Volume 78.9 fL (78.0-102.0); Mean Platelet Volume 9.7 fl (9.2-11.8); Monocytes Absolute Auto 0.65 K/mm3 (0.10-0.90); Monocytes Percent Auto 12.8 % (2.0-11.0); Neutrophils Absolute Auto 3.3 K/mm3 (1.7-7.2); Neutrophils Percent Auto 65.5 % (50.0-70.0); Platelet Count Result 405 K/mm3 (150-420); Red Blood Count 3.18 M/mm3 (4.20-5.40); Red Cell Distribution Width 23.5 % (11.6-14.4); White Blood Count 5.1 K/mm3 (4.8-10.8)
[2023-04-03 14:24] LABS: Alanine Aminotransferase 14 U/L (14-59); Albumin Level 2.8 g/dL (3.4-5.0); Alkaline Phosphatase 59 U/L (46-116); Anion Gap 7 mmol/L (8-16); Aspartate Amino Transferase 18 U/L (15-37); Bilirubin,Total 0.8 mg/dL (0.00-1.00); Blood Urea Nitrogen 9 mg/dL (7-18); Calcium 8.2 mg/dL (8.5-10.1); Carbon Dioxide 32 mmol/L (21-32); Chloride 106 mmol/L (98-108); Estimated Glomerular Filt Rate > 60; Ferritin 27 ng/mL (8-252); Glucose 170 mg/dL (70-99); Iron 329 ug/dL (50-170); Osmolality Calculated 302 mOsm/kg (285-295); Percent Iron Saturation 83 % (12-57); Potassium 3.6 mmol/L (3.5-5.1); Sodium 145 mmol/L (136-145); Total Protein 5.9 g/dL (6.4-8.2)
== END 2023-04-03 12:55 | disposition home or self-care (01) ==
LOC: CHSLAB 12:56
PROVIDERS: PCP Family Medicine; Visit Provider Internal Medicine Hematology & Oncology
DX: D50.9 Iron deficiency anemia, unspecified (principal); D3A.8 Other benign neuroendocrine tumors
CPT/HCPCS: 36415; 80053; 82728; 83540; 83550; 85025; 86316

== ENCOUNTER 2023-04-08 08:47 | Outpatient (CLI) | payer MEDICARE, MEDICAID, SELFPAY ==
[2023-04-08 09:35] LABS: Hematocrit 27.9 % (35.0-42.0); Hemoglobin 7.7 g/dL (11.7-13.8)
[2023-04-08] MEDS: ACETAMINOPHEN 325 MG TABLET 650 MG PO (10:33)
[2023-04-08] MEDS: diphenhydrAMINE HCl CAP 25 MG CAPSULE PO (10:33)
[2023-04-08] MEDS: SODIUM CHLORIDE 0.9% IV 250 ML 10 ML IVPB (10:34)
[2023-04-08 10:43] VITALS: BP 148/59; PULSE 62; RESP 16; TEMP 36.2; O2SAT 93
[2023-04-08 10:58] VITALS: BP 135/66; PULSE 62; RESP 16; TEMP 36.1; O2SAT 93
[2023-04-08 11:58] VITALS: BP 130/58; PULSE 60; RESP 16; TEMP 35.8; O2SAT 97
[2023-04-08 12:58] VITALS: BP 163/63; PULSE 63; RESP 18; TEMP 35.8; O2SAT 94
[2023-04-08 13:54] LABS: Basophils Absolute Auto 0.04 K/mm3 (0.00-0.10); Basophils Percent Auto 0.8 % (0.0-1.0); Eosinophils Absolute Auto 0.09 K/mm3 (0.02-0.50); Eosinophils Percent Auto 1.7 % (1.0-6.0); Hemoglobin 9.2 g/dL (11.7-13.8); Immature Granulocyte Absolute 0.01 K/mm3 (0.00-0.00); Immature Granulocyte Percent A 0.2 % (0.0-0.0); Lymphocytes Absolute Auto 1.15 K/mm3 (1.10-4.50); Lymphocytes Percent Auto 22.3 % (18.0-42.0); Mean Corpuscular HGB Conc 28.8 g/dL (32.0-36.0); Mean Corpuscular Hemoglobin 23.8 pg (27.0-31.0); Mean Corpuscular Volume 82.7 fL (78.0-102.0); Mean Platelet Volume 10.1 fl (9.2-11.8); Monocytes Percent Auto 11.7 % (2.0-11.0); Neutrophils Absolute Auto 3.3 K/mm3 (1.7-7.2); Neutrophils Percent Auto 63.3 % (50.0-70.0); Platelet Count Result 398 K/mm3 (150-420); Red Blood Count 3.87 M/mm3 (4.20-5.40); Red Cell Distribution Width 23.5 % (11.6-14.4); White Blood Count 5.2 K/mm3 (4.8-10.8)
--- NOTE | 2023-04-08 14:00 | PC.NURSE ---
Patient tolerated blood transfusion well. Patient denies any questions at this time. Post H&H obtained, patient notified of result. IV site removed, dressing applied to site. Left floor ambulatory with .
== END 2023-04-08 08:48 | disposition home or self-care (01) ==
LOC: CHSLAB 08:59 → CHSTREATRM 09:10
PROVIDERS: PCP Family Medicine; Visit Provider Internal Medicine Hematology & Oncology
DX: D3A.8 Other benign neuroendocrine tumors (principal)
CPT/HCPCS: 36415; 36430; 85014; 85018; 85025; 86850; 86900; 86901; 86920; 96372; A9270; J2353; P9016

== ENCOUNTER 2023-04-24 07:43 | Outpatient (CLI) | payer MEDICARE, MEDICAID, SELFPAY ==
--- NOTE | ~2023-04-24 | CT_ITS ---
Clinical Indication: Neuroendocrine tumor CT Scan of the Chest, Abdomen, and Pelvis with Contrast: Technique: Contiguous sections were acquired throughout the chest, abdomen, and pelvis after intraven ous administration of 100 cc of Omnipaque 350. Dose reduction technique was used on this scan by uti mariaing automated exposure control and iterative reconstruction technique. The dose-length product (DL P) was 636.62 mGy-cm. COMPARISON: 12/05/2022 and 11/11/2022 Findings: There is no evidence of any significant mediastinal, hilar or axillary lymphadenopathy. Atherosclerot ic calcifications of the aorta and coronary vessels are present. No aortic aneurysm or dissection. No large central pulmonary embolus. There is no evidence of pleural or pericardial effusion. Stable calcified pulmonary nodules are present. No new pulmonary abnormality seen. Stable small enhancing hepatic lesion, most likely small hemangioma (axial image [id number]). The spleen, pancreas, gallbladder, adrenals and kidneys are within normal limits. No evidence of aortic aneurysm . Questionable mild diffuse wall thickening of the large bowel. No bowel obstruction. There is no evide nce to suggest acute appendicitis. There is a 5.0 x 3.1 cm mesenteric mass inferior to the pancreatic head, increased in size from prior exam (axial image 153 exam), with internal areas of calcification . Multiple enlarged peripancreatic/aortocaval lymph nodes are again present, mildly increased in size from prior exam. Largest node probably measures 2.9 cm in maximum diameter (axial image 125). Possible urinary bladder wall thickening, especially on the right side. No definite adnexal mass seen . There is trace pelvic free fluid. Stable T12 compression fracture. Impression: 5.0 x 3.1 cm mesenteric mass with internal calcifications. 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 Peripancreatic/aortocaval metastatic lymphadenopathy, increased in size from prior exam. Probable mild diffuse large bowel wall thickening. Correlate for infectious/inflammatory colitis vers us underdistention. Urinary bladder wall thickening may be due to underdistention. Correlate for cystitis. Stable calcified pulmonary nodules. Stable T12 compression fracture. Reviewed, dictated and finalized at location M. Impression: 5.0 x 3.1 cm mesenteric mass with internal calcifications. This is again consis tent with carcinoma/known recurrent tumor, increased in size from prior exam. Peripancreatic/aortocaval metastatic lymphadenopathy, increased in size from pr ior exam. Probable mild diffuse large bowel wall thickening. Correlate for infectious/inf lammatory colitis versus underdistention. Urinary bladder wall thickening may be due to underdistention. Correlate for cy stitis. Stable calcified pulmonary nodules. Stable T12 compression fracture.
== END 2023-04-24 07:44 | disposition home or self-care (01) ==
LOC: CHSIMG 07:45
PROVIDERS: PCP Family Medicine; Visit Provider Internal Medicine Hematology & Oncology
DX: D3A.8 Other benign neuroendocrine tumors (principal); R91.1 Solitary pulmonary nodule; R93.41 Abnormal radiologic findings on diagnostic imaging of renal pelvis, ureter, or bladder; M48.54XA Collapsed vertebra, not elsewhere classified, thoracic region, initial encounter for fracture
CPT/HCPCS: 71260; 74177; Q9967

== ENCOUNTER 2023-05-06 09:21 | Outpatient (CLI) | payer MEDICARE, MEDICAID, SELFPAY ==
[2023-05-06 09:34] VITALS: BMI 27.8
[2023-05-06 09:35] VITALS: BP 135/65; PULSE 64; RESP 16; TEMP 36.3; O2SAT 97
--- NOTE | 2023-05-06 09:58 | PC.NURSE ---
Patient here for monthly Sandostatin injection. Education given. No concerns voiced. Sandostatin injection administered. SEE MAR. Tolerated well. Will return June 03, 2023 at 0930 for next month's injection. Safe exit of hospital per ambulatory with sign.other.
== END 2023-05-06 09:22 | disposition home or self-care (01) ==
LOC: CHSTREATRM 09:25
PROVIDERS: PCP Family Medicine; Visit Provider Internal Medicine Hematology & Oncology
DX: D3A.8 Other benign neuroendocrine tumors (principal)
CPT/HCPCS: 96372; J2353

== ENCOUNTER 2023-05-21 13:40 | Outpatient (CLI) | payer MEDICARE, MEDICAID, SELFPAY ==
[2023-05-21 13:58] LABS: Basophils Absolute Auto 0.03 K/mm3 (0.00-0.10); Basophils Percent Auto 0.5 % (0.0-1.0); Eosinophils Percent Auto 1.6 % (1.0-6.0); Hematocrit 36.8 % (35.0-42.0); Hemoglobin 10.4 g/dL (11.7-13.8); Immature Granulocyte Absolute 0.02 K/mm3 (0.00-0.00); Immature Granulocyte Percent A 0.3 % (0.0-0.0); Lymphocytes Percent Auto 9.3 % (18.0-42.0); Mean Corpuscular HGB Conc 28.3 g/dL (32.0-36.0); Mean Corpuscular Hemoglobin 22.5 pg (27.0-31.0); Mean Corpuscular Volume 79.5 fL (78.0-102.0); Mean Platelet Volume 10.1 fl (9.2-11.8); Monocytes Absolute Auto 0.42 K/mm3 (0.10-0.90); Monocytes Percent Auto 6.5 % (2.0-11.0); Neutrophils Absolute Auto 5.3 K/mm3 (1.7-7.2); Neutrophils Percent Auto 81.8 % (50.0-70.0); Platelet Count Result 365 K/mm3 (150-420); Red Blood Count 4.63 M/mm3 (4.20-5.40); Red Cell Distribution Width 19.6 % (11.6-14.4); White Blood Count 6.4 K/mm3 (4.8-10.8)
[2023-05-21 14:52] LABS: Alanine Aminotransferase 14 U/L (14-59); Albumin Level 3.3 g/dL (3.4-5.0); Alkaline Phosphatase 71 U/L (46-116); Anion Gap 7 mmol/L (8-16); Aspartate Amino Transferase 17 U/L (15-37); Bilirubin,Total 0.7 mg/dL (0.00-1.00); Blood Urea Nitrogen 8 mg/dL (7-18); Calcium 8.8 mg/dL (8.5-10.1); Carbon Dioxide 32 mmol/L (21-32); Chloride 104 mmol/L (98-108); Estimated Glomerular Filt Rate > 60; Ferritin 15 ng/mL (8-252); Glucose 241 mg/dL (70-99); Iron 15 ug/dL (50-170); Osmolality Calculated 302 mOsm/kg (285-295); Percent Iron Saturation 4 % (12-57); Potassium 3.3 mmol/L (3.5-5.1); Sodium 143 mmol/L (136-145); Total Protein 6.7 g/dL (6.4-8.2)
== END 2023-05-21 13:41 | disposition home or self-care (01) ==
LOC: CHSLAB 13:44
PROVIDERS: PCP Family Medicine; Visit Provider Internal Medicine Hematology & Oncology
DX: D3A.8 Other benign neuroendocrine tumors (principal)
CPT/HCPCS: 36415; 80053; 82728; 83540; 83550; 85025; 86316; 86850; 86880

== ENCOUNTER 2023-05-30 07:15 | Outpatient (CLI) | payer MEDICARE, MEDICAID, SELFPAY ==
--- NOTE | ~2023-05-30 | US_ITS ---
EXAMINATION: US abdomen limited DATE: 05/30/2023 08:00 INDICATION: Abdominal pain. TECHNIQUE: Multiple grayscale and Doppler ultrasound images of the abdomen were obtained. COMPARISON: CT abdomen and pelvis 04/24/2023, 12/05/22 FINDINGS: The visualized portions of the head and body of the pancreas are normal. There is a 3.6 cm mass at the root of the small bowel mesentery. The liver is normal. There is normal flow in main port al vein. The gallbladder is normal in size and contains sludge and stones. No gallbladder wall thicke trice or sonographic Chowdary sign. The common duct is normal and measures 6 mm. IMPRESSION: 1. Cholelithiasis. No evidence of acute cholecystitis. 2. 3.6 cm mesenteric mass. This finding was seen on the prior CTs and is consistent with metastatic d isease. Reviewed, dictated and finalized at location A. IMPRESSION: 1. Cholelithiasis. No evidence of acute cholecystitis. 2. 3.6 cm mesenteric mass. This finding was seen on the prior CTs and is consis tent with metastatic disease.
== END 2023-05-30 07:16 | disposition home or self-care (01) ==
LOC: CHSIMG 07:16
PROVIDERS: PCP Family Medicine; Visit Provider Internal Medicine Hematology & Oncology
DX: R10.9 Unspecified abdominal pain (principal); K80.20 Calculus of gallbladder without cholecystitis without obstruction; R19.09 Other intra-abdominal and pelvic swelling, mass and lump
CPT/HCPCS: 76705

== ENCOUNTER 2023-06-05 06:56 | Outpatient (CLI) | payer MEDICARE, MEDICAID, SELFPAY ==
--- NOTE | ~2023-06-05 | CT_ITS ---
EXAMINATION: CT abdomen pelvis w con INDICATION: Right lower quadrant pain TECHNIQUE: Computed tomographic images of the abdomen and pelvis were obtained after the administrati on of 100 cc of Omnipaque 350 intravenous contrast. The dose-length product (DLP) was 448.26 mGy-cm. Automated exposure control and iterative reconstruction technique were employed. COMPARISON: 04/24/2023 FINDINGS: A calcified nodule of the left lower lobe is consistent with old granulomatous disease. The heart size is normal. There is a stable 1.4 cm hemangioma of the right hepatic lobe. The pancreas an d adrenal glands are normal. There is a 3 mm cyst of the spleen. Stones layering in the nondistended gallbladder. Cysts of the kidneys measure up to 2.3 cm on the right. There is an infiltrating, partia lly calcified mass of the small bowel mesentery which measures approximately 5.1 x 2.9 cm. There is p eriportal and aortocaval lymphadenopathy. There are changes of right hemicolectomy. No free intraperi toneal gas or evidence of bowel obstruction. A T12 compression fracture is again noted. Small areas o f soft tissue density in the buttocks could reflect injection sites. IMPRESSION: 1. Stable partially calcified mass of the small bowel mesentery, consistent with history of neuroendo crine tumor. 2. Periportal and aortocaval lymphadenopathy, consistent with metastatic disease. 3. Cholelithiasis. Reviewed, dictated and finalized at location L. IMPRESSION: 1. Stable partially calcified mass of the small bowel mesentery, consistent wit h history of neuroendocrine tumor. 2. Periportal and aortocaval lymphadenopathy, consistent with metastatic diseas e. 3. Cholelithiasis.
== END 2023-06-05 06:57 | disposition home or self-care (01) ==
LOC: CHSIMG 06:58
PROVIDERS: PCP Family Medicine; Visit Provider Internal Medicine Hematology & Oncology
DX: R10.9 Unspecified abdominal pain (principal); R59.0 Localized enlarged lymph nodes; K80.20 Calculus of gallbladder without cholecystitis without obstruction
CPT/HCPCS: 74177; Q9967

== ENCOUNTER 2023-06-17 12:58 | Outpatient (CLI) | payer MEDICARE, SELFPAY ==
[2023-06-17 13:15] LABS: Hematocrit 36.4 % (35.0-42.0); Hemoglobin 10.4 g/dL (11.7-13.8); Immature Platelet Fraction Pct 8.8 % (1.0-7.0); Mean Corpuscular HGB Conc 28.6 g/dL (32.0-36.0); Mean Corpuscular Hemoglobin 22.4 pg (27.0-31.0); Mean Corpuscular Volume 78.3 fL (78.0-102.0); Platelet Count Result 84 K/mm3 (150-420); Red Blood Count 4.65 M/mm3 (4.20-5.40); Red Cell Distribution Width 18.8 % (11.6-14.4); White Blood Count 3.5 K/mm3 (4.8-10.8)
[2023-06-17 13:45] LABS: Alanine Aminotransferase 33 U/L (14-59); Albumin Level 3.1 g/dL (3.4-5.0); Alkaline Phosphatase 72 U/L (46-116); Anion Gap 9 mmol/L (8-16); Aspartate Amino Transferase 21 U/L (15-37); Bilirubin,Total 0.5 mg/dL (0.00-1.00); Blood Urea Nitrogen 8 mg/dL (7-18); Calcium 8.2 mg/dL (8.5-10.1); Carbon Dioxide 27 mmol/L (21-32); Chloride 107 mmol/L (98-108); Cholesterol 132 mg/dL (0-200); Estimated Glomerular Filt Rate 58; Glucose 367 mg/dL (70-99); HDL Direct 53 mg/dL (40-60); LDL Cholesterol Calculated 39 mg/dL (<130); Osmolality Calculated 309 mOsm/kg (285-295); Potassium 3.8 mmol/L (3.5-5.1); Sodium 143 mmol/L (136-145); Total Protein 6.4 g/dL (6.4-8.2); Triglycerides 198 mg/dL (0-150)
[2023-06-17 13:47] LABS: Band Neutrophils Percent 2 % (0-6); Basophils Percent Manual 0 % (0-1); Eosinophils Percent Manual 3 % (1-6); Lymphocytes Absolute Manual 0.59 K/mm3 (1.1-4.5); Lymphocytes Percent Manual 17 % (18-44); Monocytes Absolute Manual 0.31 K/mm3 (0.1-0.90); Monocytes Percent Manual 9 % (3-9); Neutrophils Absolute Manual 2.48 K/mm3 (1.7-7.2); Neutrophils Percent Manual 69 % (46-73); Platelet Estimate Decreased (Adequate); Total Cells Counted 100
== END 2023-06-17 12:59 | disposition home or self-care (01) ==
LOC: CHSLAB 13:00
PROVIDERS: PCP Family Medicine; Visit Provider Internal Medicine Hematology & Oncology
DX: D3A.8 Other benign neuroendocrine tumors (principal)
CPT/HCPCS: 36415; 80053; 80061; 85025; 85055; 86316

== ENCOUNTER 2023-07-16 11:33 | Outpatient (CLI) | payer MEDICARE, SELFPAY ==
[2023-07-16 11:49] LABS: Hematocrit 36.5 % (35.0-42.0); Hemoglobin 10.6 g/dL (11.7-13.8); Immature Platelet Fraction Pct 7.9 % (1.0-7.0); Mean Corpuscular Hemoglobin 22.3 pg (27.0-31.0); Mean Corpuscular Volume 76.7 fL (78.0-102.0); Mean Platelet Volume 10.6 fl (9.2-11.8); Platelet Count Result 130 K/mm3 (150-420); Red Blood Count 4.76 M/mm3 (4.20-5.40); Red Cell Distribution Width 19.8 % (11.6-14.4); White Blood Count 3.4 K/mm3 (4.8-10.8)
[2023-07-16 12:17] LABS: Band Neutrophils Percent 0 % (0-6); Basophils Percent Manual 0 % (0-1); Eosinophils Percent Manual 0 % (1-6); Lymphocytes Absolute Manual 0.68 K/mm3 (1.1-4.5); Lymphocytes Percent Manual 20 % (18-44); Monocytes Absolute Manual 0.34 K/mm3 (0.1-0.90); Monocytes Percent Manual 10 % (3-9); Neutrophils Absolute Manual 2.38 K/mm3 (1.7-7.2); Neutrophils Percent Manual 70 % (46-73); Platelet Estimate Adequate (Adequate); Total Cells Counted 100
[2023-07-16 12:34] LABS: Alanine Aminotransferase 37 U/L (14-59); Alkaline Phosphatase 87 U/L (46-116); Anion Gap 8 mmol/L (8-16); Aspartate Amino Transferase 35 U/L (15-37); Bilirubin,Total 0.8 mg/dL (0.00-1.00); Blood Urea Nitrogen 9 mg/dL (7-18); Carbon Dioxide 31 mmol/L (21-32); Chloride 106 mmol/L (98-108); Cholesterol 122 mg/dL (0-200); Estimated Glomerular Filt Rate 60; Ferritin 17 ng/mL (8-252); Glucose 220 mg/dL (70-99); HDL Direct 54 mg/dL (40-60); Iron 27 ug/dL (50-170); LDL Cholesterol Calculated 29 mg/dL (<130); Osmolality Calculated 305 mOsm/kg (285-295); Percent Iron Saturation 10 % (12-57); Potassium 3.3 mmol/L (3.5-5.1); Sodium 145 mmol/L (136-145); Total Protein 6.2 g/dL (6.4-8.2); Triglycerides 194 mg/dL (0-150)
== END 2023-07-16 11:34 | disposition home or self-care (01) ==
LOC: CHSLAB 11:35
PROVIDERS: PCP Family Medicine; Visit Provider Internal Medicine Hematology & Oncology
DX: D3A.8 Other benign neuroendocrine tumors (principal); Z13.6 Encounter for screening for cardiovascular disorders
CPT/HCPCS: 36415; 80053; 80061; 82728; 83540; 83550; 85025; 85055; 86316

== ENCOUNTER 2023-07-29 09:03 | Outpatient (CLI) | payer MEDICARE, MEDICAID, SELFPAY ==
[2023-07-29 09:16] VITALS: BP 143/79; PULSE 72; RESP 14; TEMP 36.6; O2SAT 95
[2023-07-29 09:17] VITALS: BMI 27.8
[2023-07-29] MEDS: IRON SUCROSE COMPLEX 300 MG in SODIUM CHLORIDE 0.9% IV 250 ML 125 MG IVPB (09:45)
--- NOTE | 2023-07-29 11:44 | PC.NURSE ---
Patient here for #1 0f 4 IV Venofer infusions. Has had many Venofer infusion in the past. Voices no concerns. IV Venofer administered. SEE MAR. Tolerated well. Safe exit of hospital with walker and significant other. Will return Tu08/05/23 at 0900 For #2.
== END 2023-07-29 09:04 | disposition home or self-care (01) ==
LOC: CHSTREATRM 09:04
PROVIDERS: PCP Family Medicine; Visit Provider Internal Medicine Hematology & Oncology
DX: D64.9 Anemia, unspecified (principal)
CPT/HCPCS: 96365; 96366; J1756; J7050

== ENCOUNTER 2023-08-05 08:53 | Outpatient (CLI) | payer MEDICARE, MEDICAID, SELFPAY ==
--- NOTE | 2023-08-05 09:10 | PC.NURSE ---
here for op iron infusion, to room 202 with spouse
[2023-08-05 09:15] VITALS: BMI 21.9
[2023-08-05] MEDS: IRON SUCROSE COMPLEX 300 MG in SODIUM CHLORIDE 0.9% IV 250 ML 125 MG IVPB (09:35)
[2023-08-05 09:48] VITALS: BP 159/78; PULSE 73; RESP 18; TEMP 35.9; O2SAT 96
--- NOTE | 2023-08-05 11:45 | PC.NURSE ---
Discharge via wheelchair with spouse to home, tolerated infusion well, saline lock dc with cathlon intact, site clear
== END 2023-08-05 08:54 | disposition home or self-care (01) ==
PROVIDERS: PCP Family Medicine; Visit Provider Internal Medicine Hematology & Oncology
DX: D64.9 Anemia, unspecified (principal); E61.1 Iron deficiency; D3A.8 Other benign neuroendocrine tumors
CPT/HCPCS: 96365; 96366; J1756; J7050

== ENCOUNTER 2023-08-12 08:43 | Outpatient (CLI) | payer MEDICARE, MEDICAID, SELFPAY ==
[2023-08-12] MEDS: IRON SUCROSE COMPLEX 300 MG in SODIUM CHLORIDE 0.9% IV 250 ML 125 MG IVPB (09:15)
[2023-08-12 09:20] VITALS: BP 138/69; PULSE 68; RESP 16; TEMP 36.5; O2SAT 98; BMI 21.9
--- NOTE | 2023-08-12 11:16 | PC.NURSE ---
Patient here for #3 of 4 IV Venofer infusion. No concerns voiced. IV Venofer administered. SEE MAR. Tolerated well. Will return 08/19/23 at 0900 for last Venofer infusion of this cycle. Safe exit hospital per to sign other vehicle per staff.
== END 2023-08-12 08:44 | disposition home or self-care (01) ==
LOC: CHSTREATRM 08:47
PROVIDERS: PCP Family Medicine; Visit Provider Internal Medicine Hematology & Oncology
DX: D64.9 Anemia, unspecified (principal); E61.1 Iron deficiency
CPT/HCPCS: 96365; 96366; J1756; J7050

== ENCOUNTER 2023-08-19 08:53 | Outpatient (CLI) | payer MEDICARE, MEDICAID, SELFPAY ==
[2023-08-19 08:59] VITALS: BMI 21.9
[2023-08-19 09:04] VITALS: BP 120/63; PULSE 76; RESP 218; TEMP 36.8; O2SAT 95
[2023-08-19] MEDS: IRON SUCROSE COMPLEX 300 MG in SODIUM CHLORIDE 0.9% IV 250 ML 125 MG IVPB (09:15)
--- NOTE | 2023-09-08 10:27 | PC.NURSE ---
08/19/2023 Start time was 0915 and stop time for 1115 for IV Venofer infusion.
== END 2023-08-19 08:54 | disposition home or self-care (01) ==
LOC: CHSTREATRM 08:55
PROVIDERS: PCP Family Medicine; Visit Provider Internal Medicine Hematology & Oncology
DX: D64.9 Anemia, unspecified (principal); E61.1 Iron deficiency; D3A.8 Other benign neuroendocrine tumors
CPT/HCPCS: 96365; 96366; J1756; J7050

== ENCOUNTER 2023-11-11 08:50 | Outpatient (CLI) | payer MEDICARE, MEDICAID, SELFPAY ==
[2023-11-11 09:03] VITALS: BMI 21.9
[2023-11-11 09:52] LABS: Hematocrit 23.6 % (35.0-42.0)
[2023-11-11 09:56] LABS: Hemoglobin 6.8 g/dL (11.7-13.8)
[2023-11-11] MEDS: SODIUM CHLORIDE 0.9% IV 250 ML 10 ML IVPB (10:00)
[2023-11-11 10:31] VITALS: BP 121/69; PULSE 72; RESP 14; TEMP 36.6; O2SAT 97
[2023-11-11] MEDS: diphenhydrAMINE HCl CAP 25 MG CAPSULE PO (10:42)
[2023-11-11] MEDS: ACETAMINOPHEN 325 MG TABLET 650 MG PO (10:42)
[2023-11-11 10:45] VITALS: BP 119/68; PULSE 68; RESP 14; TEMP 36.6; O2SAT 96
--- NOTE | 2023-11-11 10:45 | PC.NURSE ---
0910 Patient here for type and cross and transfuse 1 unit PRBCs. Consent signed. Education given. No concerns voiced. 1030 Pre medicated as ordered see MAR. 1 Unit PRBC's started at rate 100 ml/hr.
--- NOTE | 2023-11-11 10:52 | PC.NURSE ---
1045 No s/sx blood transfusion reaction noted or reported. UP rate to 125 ml/hr. Watching TV.
[2023-11-11 11:45] VITALS: BP 116/69; PULSE 68; RESP 14; TEMP 36.6; O2SAT 97
[2023-11-11 12:45] VITALS: BP 111/63; PULSE 68; RESP 14; TEMP 36.6; O2SAT 97
[2023-11-11 13:32] VITALS: BP 111/69; PULSE 68; RESP 14; TEMP 36.6; O2SAT 97
--- NOTE | 2023-11-11 13:33 | PC.NURSE ---
1115 Watching TV. No s/sx of transfusion reaction noted or reported. UP rate to 150 ml/hr from here on out. 1245 1 Unit Prbc's completed. Normal saline infusing. 1335 Lab here to draw post H/H. 1340 UP bathroom and dc to home per wc/sign other.
[2023-11-11 13:38] LABS: Hematocrit 29.1 % (35.0-42.0); Hemoglobin 8.5 g/dL (11.7-13.8)
== END 2023-11-11 08:51 | disposition home or self-care (01) ==
LOC: CHSTREATRM 08:58
PROVIDERS: PCP Family Medicine; Visit Provider Internal Medicine Hematology & Oncology
DX: D64.9 Anemia, unspecified (principal)
CPT/HCPCS: 36415; 36430; 85014; 85018; 86850; 86900; 86901; 86920; A9270; J7050; P9016